=== PATIENT | male | born 1950 | race Hispanic/Latino ===

== ENCOUNTER 2018-10-06 03:27 | Emergency (ER) | payer MEDICARE, OTHER ==
[~2018-10-06] VITALS: Ht 165.1 cm; Wt 77.1 kg
--- OUTSIDE RECORDS SUMMARY | 2018-10-06 03:30 | XMS REPORT | Continuity of Care Document ---
Author Author [facility] Interface Address Unknown Phone Unavailable Problems Problem Status Onset Date Classification Date Reported Comments Source Diabetes mellitus Resolved Problem 09/22/2018 Medical Group Erectile dysfunction due to arterial insufficiency Active Problem 09/22/2018 Medical Group Medications Medication Details Route Status Patient Instructions Ordering Provider Order Date Source Allergies, Adverse Reactions, Alerts Substance Category Reaction Severity Reaction type Status Date Reported Comments Source Immunizations Immunization Date Given Site Status Last Updated Comments Source Results Order Name Results Value Reference Range Date Interpretation Comments Source Vital Signs Vital Sign Value Date Comments Source Encounters Location Location Details Encounter Type Encounter Number Reason For Visit Attending Provider ADM Date DC Date Status Source Outpatient [id number] KARTHIK PARKER 07/26/2018 Active [facility] Outpatient [id number] NURSE VISIT 08/02/2018 Active [facility] Outpatient [id number] NURSE VISIT 09/19/2018 Active [facility] Outpatient [id number] Karthik Parker 09/19/2018 09/20/2018 [facility] Procedures Procedure Code Date Perfomer Comments Source
--- OUTSIDE RECORDS SUMMARY | 2018-10-06 03:30 | XMS REPORT | Summary of Care ---
Author Author [facility] Organization [facility] Address Unknown Phone Unavailable Encounter HQ Ivanr_elkin(FIN) [id number] Date(s): 09/19/18 - 09/19/18 [facility] [address] [place], [place] [address] Discharge Disposition: Home or Self Care Attending Physician: Karthik Parker MD Vital Signs No data available for this section Problem List Condition Effective Dates Status Health Status Informant Diabetes Resolved mellitus(Confirmed) Erectile dysfunction Active due to arterial insufficiency(Confir med) Allergies, Adverse Reactions, Alerts Substance Reaction Severity Status NKDA Active Medications No data available for this section Results No data available for this section Immunizations No data available for this section Procedures No data available for this section Social History Social History Type Response Substance Abuse Use: None. Sexual Sexually active: No. Employment/School Status: Employed. Alcohol Never Smoking Status Current some day smoker; Exposure to Tobacco Smoke self; Cigarette Smoking Last 365 Days Yes; Reg Smoking Cessation Counseling No entered on: 07/26/18 Assessment and Plan No data available for this section
--- OUTSIDE RECORDS SUMMARY | 2018-10-06 03:30 | XMS REPORT ---
[facility] Address Unknown Phone Unavailable Care Team Providers Care Handle Bender Name Role Phone DELFIN KNOWLES Unavailable Unavailable Problems This patient has no known problems. Allergies, Adverse Reactions, Alerts This patient has no known allergies or adverse reactions. Medications This patient has no known medications. Results Test Description Test Time Test Comments Text Results Atomic Results Result Comments HIP LEFT 2-3 VW (+/- PELVIS) [place] [address] Patient Name: FRANK AMES MR #: [id number] : 1950 Age/Sex: 66/M Req #: [id number] Adm Physician: Ordered by: DELFIN KNOWLES MD Report #: [id number] Location: [facility] Room/Bed: Procedure: [id number] DX/HIP LEFT 2-3 VW (+/- PELVIS) Exam Date: Exam Time: REPORT STATUS: Signed PROCEDURE: HIP LEFT 2-3 VW (+/- PELVIS) COMPARISON: None available. INDICATIONS: POLYARTHRITIS FINDINGS: Normal mineralization. No acute fracture or dislocation. Joint spaces are within normal limits. The soft tissues are unremarkable. CONCLUSION: No acute radiographic abnormality. Dictated by: Maribel Neal M.D. on 04/15/2017 at 13:16 Electronically approved by: Maribel Neal M.D. on 04/15/2017 at 13:16 Dictated By: MARIBEL NEAL MD 15 Transcribed By: WANDA on 04/15/171315 COPY TO: DELFIN KNOWLES MD SP LUMBAR, COMPLETE MIN 4VW [place] [address] Patient Name: FRANK AMES MR #: [id number] : 1950 Age/Sex: 66/M Req #: [id number] Adm Physician: Ordered by: DELFIN KNOWLES MD Report #: [id number] Location: [facility] Room/Bed: Procedure: [id number] DX/SP LUMBAR, COMPLETE MIN 4VW Exam Date: 04/15/17 Exam Time: 1215 REPORT STATUS: Signed PROCEDURE: L-SPINE COMPLETE COMPARISON: None. INDICATIONS: POLYARTHRITIS FINDINGS: There are 5 lumbar-type vertebral bodies. Degenerative changes are evidenced by anterior osteophytosis. Grade 2 anterolisthesis of L5 on S1 is present. Otherwise, the vertebral bodies are well-aligned. There are no fractures, lytic or blastic lesions. The disc-space heights are well-maintained. The sacroiliac joints are unremarkable. Cholelithiasis. CONCLUSION: No acute radiographic abnormality. Degenerative changes. Dictated by: Maribel Neal M.D. on 04/15/2017 at 13:19 Electronically approved by: Maribel Neal M.D. on 04/15/2017 at 13:19 Dictated By: MARIBEL NEAL MD 18 Transcribed By: WANDA on 04/15/171318 COPY TO: DELFIN KNOWLES MD
[2018-10-06] MEDS ORDERED: LIDOCAINE 5% PATCH TP ONE (03:45)
[2018-10-06 04:00] LABS: BASOPHILS # (AUTO) 0.1 (0.0-0.1); BASOPHILS % 0.5 % (0.0-1.0); EOSINOPHILS # (AUTO) 0.4 (0.0-0.4); EOSINOPHILS % 4.4 % (0.0-6.0); HEMATOCRIT 37.7 % (38.2-49.6); LYMPHOCYTES # (AUTO) 1.4 (1.0-3.2); LYMPHOCYTES % 14.7 % (18.0-39.1); MEAN CORPUSCULAR HEMOGLOBIN 31.5 pg (28-32); MEAN CORPUSCULAR HGB CONC 34.5 g/dL (31-35); MEAN CORPUSCULAR VOLUME 91.3 fL (81-99); MONOCYTES # (AUTO) 0.9 (0.2-0.8); MONOCYTES % 9.3 % (4.4-11.3); NEUTROPHILS % 70.8 % (38.7-80.0); PLATELET COUNT 220 x10e3/uL (140-360); RED BLOOD COUNT 4.13 x10e6/uL (4.3-5.7); RED CELL DISTRIBUTION WIDTH 13.3 % (11.7-14.4)
[2018-10-06 04:20] LABS: ALANINE AMINOTRANSFERASE 26 IU/L (0-55); ALBUMIN 3.6 g/dL (3.5-5.0); ALKALINE PHOSPHATASE 112 IU/L (40-150); ANION GAP 11.1 mmol/L (8-16); BLOOD UREA NITROGEN 18 mg/dL (7-26); BUN/CREATININE RATIO 21 (6-25); CALCIUM 9.9 mg/dL (8.4-10.2); CARBON DIOXIDE 27 mmol/L (22-29); CHLORIDE 102 mmol/L (98-107); CREATININE, SERUM 0.87 mg/dL (0.72-1.25); EST GLOMERULAR FILTRATION RATE > 60 ML/MIN (60-); GLUCOSE 143 mg/dL (74-118); POTASSIUM 4.1 mmol/L (3.5-5.1); SODIUM 136 mmol/L (136-145)
[2018-10-06 04:29] LABS: BILIRUBIN,URINE NEGATIVE (NEGATIVE); CLARITY,URINE CLEAR (CLEAR); COLOR,URINE YELLOW (YELLOW); KETONES,URINE NEGATIVE (NEGATIVE); LEUKOCYTE ESTERASE ,URINE NEGATIVE (NEGATIVE); NITRITE,URINE NEGATIVE (NEGATIVE); PROTEIN,URINE DIPSTICK NEGATIVE (NEGATIVE); URINE UROBILINOGEN 4 mg/dL (0.2 - 1)
[2018-10-06 04:30] LABS: BACTERIA,URINE FEW /HPF; EPITHELIAL CELLS,URINE FEW /LPF; WBC,URINE (MAN) 0-5 /HPF (0-5)
[2018-10-06] MEDS ORDERED: SODIUM CHLORIDE 0.9% 50ML 50 ML ONE (04:35)
[2018-10-06] MEDS ORDERED: IOPAMIDOL 370 MG/ML 200 ML INFUS..BTL INJ ONE (04:36)
--- NOTE | 2018-10-06 05:30 | Diagnostic Imaging Report ---
EXAM: CT Abdomen and Pelvis WITH contrast INDICATION: TRAUMA COMPARISON: None. TECHNIQUE: Abdomen and pelvis were scanned utilizing a multidetector helical scanner from the lung base to the pubic symphysis after administration of IV contrast. Coronal and sagittal reformations were obtained. Routine protocol was performed. Scan was performed when during portal venous phase. IV CONTRAST: 100 mL of Isovue-370 ORAL CONTRAST: Water COMPLICATIONS: None RADIATION DOSE: Total DLP: 315.74 mGy*cm Estimated effective dose: (DLP x 0.015 x size factor) mSv Dose modulation, iterative reconstruction, and/or weight based adjustment of the mA/kV was utilized to reduce the radiation dose to as low as reasonably achievable. FINDINGS: LINES and TUBES: None. LOWER THORAX: Scattered subsegmental atelectasis. No pneumothorax within the visualized portions. HEPATOBILIARY: No focal hepatic lesions. No biliary ductal dilation. GALLBLADDER: There are stones in the gallbladder. No wall thickening. SPLEEN: No splenomegaly. PANCREAS: No focal masses or ductal dilatation. ADRENALS: No adrenal nodules KIDNEYS/URETERS: Kidneys enhance symmetrically. No hydronephrosis. No cystic or solid mass lesions. No stones. GI TRACT: No abnormal distention, wall thickening, or evidence of bowel obstruction. Large amount of stool in the colon. There are diverticula within the colon without evidence of diverticulitis. Appendix is normal. PELVIC ORGANS/BLADDER: Unremarkable. LYMPH NODES: No lymphadenopathy. VESSELS: Unremarkable. PERITONEUM / RETROPERITONEUM: No free air or fluid. BONES: Grade 1 anterolisthesis of L5 on S1 posterior fusion and decompression. Acute mildly displaced fractures within the visualized portions left ribs 8-11, specifically 8 anterolaterally, 9 and 10 laterally, an 11 posteriorly. SOFT TISSUES: Soft tissue swelling adjacent to the left rib fractures. IMPRESSION: Acute mildly displaced fractures of left ribs 8-11. No acute intra-abdominal abnormalities. Signed by: DR. Danny Rangel MD on 10/06/2018 5:26 AM
--- NOTE | 2018-10-06 05:34 | Diagnostic Imaging Report ---
EXAMINATION: RIBS UNILAT W/CXR INDICATION: fall with ecchymosis over ribs 10-12 COMPARISON: None FINDINGS: AP view TUBES and LINES: None. LUNGS: Lungs are well inflated. Lungs are clear. There is no evidence of pneumonia or pulmonary edema. PLEURA: No pleural effusion or pneumothorax. HEART AND MEDIASTINUM: The cardiomediastinal silhouette is unremarkable. BONES AND SOFT TISSUES: Mildly displaced left ninth rib fracture. Left 8th, 10th, and 11th rib fractures seen on same day abdominal CT are not well visualized radiographically. Ligamentous anchors project over the left humeral head. Soft tissues are unremarkable. UPPER ABDOMEN: No free air under the diaphragm. IMPRESSION: Acute rib fractures of left ribs 8-11, better seen on CT abdomen and pelvis 10/06/2018. No pneumothorax. Signed by: DR. Danny Rangel MD on 10/06/2018 5:30 AM
--- NOTE | 2018-10-06 07:51 | NUR ---
TRANSFER INITIATED TO [facility], SPOKE WITH PARRIS ROTARY FURNACE TENDER
[2018-10-06] MEDS ORDERED: SODIUM CHLORIDE 0.9% 1000ML 1,000 ML IV STA (07:54)
[2018-10-06] MEDS ORDERED: ONDANSETRON HCL INJ 2MG/ML 2ML 2 MG/ML VIAL IV STA (07:54)
[2018-10-06] MEDS ORDERED: MORPHINE SULFATE INJ 4 MG/ML INJ 1ML IV ONE (08:00)
[2018-10-06] MEDS ORDERED: MORPHINE SULFATE 5 MG/ML VIAL IV ONE (08:00)
--- NOTE | 2018-10-06 09:41 | NUR ---
report to [facility] ER; [phone]; Report to Ann RN
--- NOTE | 2018-10-06 09:57 | Diagnostic Imaging Report ---
EXAM: CT Chest without contrast INDICATION: Status post fall with rib fractures. COMPARISON: None TECHNIQUE: Chest was scanned utilizing a multidetector helical scanner from the lung apex through the level of the adrenal glands without administration of IV contrast. Coronal and sagittal reformations were obtained. Routine protocol was performed. RADIATION DOSE: Total DLP: 469.9 mGy*cm Dose modulation, iterative reconstruction, and/or weight based adjustment of the mA/kV was utilized to reduce the radiation dose to as low as reasonably achievable. COMPLICATIONS: None FINDINGS: LINES/ TUBES: None. LUNGS AND AIRWAYS: The central airways are patent. There is patchy dependent atelectasis. No evidence of consolidation or pulmonary edema. PLEURA: The pleural spaces are clear. HEART AND MEDIASTINUM: The thyroid gland is normal. No mediastinal, hilar or axillary lymphadenopathy. No cardiomegaly or pericardial effusion. There is coronary and aortic atherosclerotic calcifications. UPPER ABDOMEN: Please refer to the same day CT abdomen/pelvis for details. BONES/SOFT TISSUES: The 10th and 11th ribs are excluded from the field of view. Minimally displaced left eighth and 10th rib fractures are noted. IMPRESSION: No evidence of pulmonary contusion as clinically queried. The lower ribs are partially excluded from the field of view. Minimally displaced left eighth and 10th rib fractures. Known left ninth and eleventh rib fractures are not included in the field of view. Please refer to the same day CT abdomen/pelvis report for further details. Signed by: Dr. Claire Malin MD on 10/06/2018 9:57 AM
--- NOTE | 2018-10-06 11:18 | NUR ---
PATIENT PICKED UP BY [facility] @ 1100; VITALS STABLE; FAMILY EN ROUTE TO [facility]
[2018-10-06 11:22] VITALS: BP 136/83
== END 2018-10-06 11:24 | disposition other institution (70) ==
LOC: ER 03:27
DX: S22.42XA Multiple fractures of ribs, left side, initial encounter for closed fracture (principal); S20.212A Contusion of left front wall of thorax, initial encounter; R07.81 Pleurodynia; R10.12 Left upper quadrant pain; W18.30XA Fall on same level, unspecified, initial encounter; Y99.0 Civilian activity done for income or pay
CPT/HCPCS: 36415; 71101; 71250; 74177; 80053; 81001; 85025; 86850; 86900; 99284; J2270; J2405; J7030; Q9967

== ENCOUNTER 2019-03-23 15:05 | Inpatient (IN) | payer OTHER, MEDICARE ==
[~2019-03-23] VITALS: Ht 165.1 cm; Wt 77.7 kg
--- OUTSIDE RECORDS SUMMARY | 2019-03-23 15:08 | XMS REPORT | Summary of Care ---
Author Author [facility] Organization [facility] Address Unknown Phone Unavailable Encounter HARRIS Beltrán(SUJATHA) [id number] Date(s): 10/06/18 - 10/06/18 [facility] [address] [employer] provided by [facility] [place] [address]- Encounter Diagnosis Rib fracture (Discharge Diagnosis) - 10/06/18 Discharge Disposition: Home or Self Care Attending Physician: Nazario Willingham MD Admitting Physician: Du Frias MD Referring Physician: Clifford Frausto MD Vital Signs Most recent to 1 2 oldest [Reference Range]: Temperature Oral 98.6 DegF 98.2 DegF [96.4-99.1 DegF] (10/06/18 3:30 PM) (10/06/18 11:58 AM) Blood Pressure 165/94 mmHg 138/85 mmHg [90-140/60-90 mmHg] *HI* (10/06/18 11:58 AM) (10/06/18 3:30 PM) Respiratory Rate 18 BRMIN 18 BRMIN [14-20 BRMIN] (10/06/18 3:30 PM) (10/06/18 11:58 AM) Peripheral Pulse 88 bpm 85 bpm Rate [60-100 bpm] (10/06/18 3:30 PM) (10/06/18 11:58 AM) Weight 86.364 kg (10/06/18 11:58 AM) Problem List Condition Effective Dates Status Health Status Informant Diabetes Resolved mellitus(Confirmed) Erectile dysfunction Active due to arterial insufficiency(Confir med) Allergies, Adverse Reactions, Alerts Substance Reaction Severity Status NKDA Active Medications acetaminophen-hydrocodone 325 mg-5 mg oral tablet 1 tab, Route: PO, Drug Form: TAB, Dosing Weight 86.364, kg, ONCE, STAT, Start da te: 10/06/18 12:32:00 HYPERION ADMINISTRATOR, Stop date: 10/06/18 12:32:00 HYPERION ADMINISTRATOR Notes: (Same as: Sutton 325/5) Do not exceed 4gm/day of acetaminophen. Start Date: 10/06/18 Stop Date: 10/06/18 Status: Completed ibuprofen 400 mg, 1 tab, Route: PO, Drug form: TAB, ONCE, Dosing Weight 86.364, kg, Priori ty: STAT, Start date: 10/06/18 12:33:00 HYPERION ADMINISTRATOR, Stop date: 10/06/18 12:33:00 HYPERION ADMINISTRATOR Notes: (Same as: Motrin)"Do Not Crush" Give with food. Start Date: 10/06/18 Stop Date: 10/06/18 Status: Completed Sutton 10/325 oral tablet 1 tab, PO, Q6H, # 12 tab, 0 Refill(s), given to patient Start Date: 10/06/18 Stop Date: 10/14/18 Status: Ordered Results No data available for this section [...] Reg Smoking Cessation Counseling No entered on: 10/06/18 Assessment and Plan No data available for this section
--- OUTSIDE RECORDS SUMMARY | 2019-03-23 15:08 | XMS REPORT | Summary of Care ---
Author Author [facility] Organization [facility] Address Unknown Phone Unavailable Encounter HQ Jerel(FIN) [id number] Date(s): 08/02/18 - 08/02/18 [facility] [address] [place] [address]- [phone] Discharge Disposition: Home or Self Care Vital Signs Most recent to 1 oldest [Reference Range]: Temperature Oral 98.0 DegF [96.4-99.1 DegF] (08/02/18 10:14 AM) Blood Pressure 144/91 mmHg [90-140/60-90 mmHg] *HI* (08/02/18 10:14 AM) Peripheral Pulse 86 bpm Rate [60-100 bpm] (08/02/18 10:14 AM) Problem List Condition Effective Dates Status Health Status Informant Diabetes Resolved mellitus(Confirmed) Erectile dysfunction Active due to arterial insufficiency(Confir med) Allergies, Adverse Reactions, Alerts No Known Medication Allergies Medications No data available for this section [...]
--- OUTSIDE RECORDS SUMMARY | 2019-03-23 15:08 | XMS REPORT | Continuity of Care Document ---
Author Author [employer] Organization [employer] Address Unknown Phone Unavailable Care Team Providers Care Cam Maker Name Role Phone Collect[employer] Unavailable Unavailable Problems Problem Status Onset Date Classification Date Reported Comments Source Fracture of one rib, unspecified side, initial encounter for closed fracture 10/06/2018 10/08/2018 [facility] MULTIPLE RIB FX Active 10/03/2018 [facility] Diabetes mellitus (disorder) Resolved Problem 02/20/2019 [facility] Erectile dysfunction co-occurrent and due to arterial insufficiency (disorder) Active Problem 02/20/2019 [facility] Medications Medication Details Route Status Patient Instructions Ordering Provider Order Date Source Acetaminophen 325 MG / Hydrocodone Bitartrate 10 MG Oral Tablet [[place] 10/325] 1 tab, PO, Q6H, # 12 tab, 0 Refill(s), given to patient Active 10/06/2018 [facility] Ibuprofen 400 mg, 1 tab, Route: PO, Drug form: TAB, ONCE, Dosing Weight 86.364, kg, Priority: STAT, Start date: 10/06/18 12:33:00 [employer], Stop date: 10/06/18 12:33:00 CSTNotes: (Same as: Motrin) "Do Not Crush" Give with food. Inactive 10/06/2018 [facility] Acetaminophen 325 MG / Hydrocodone Bitartrate 5 MG Oral Tablet 1 tab, Route: PO, Drug Form: TAB, Dosing Weight 86.364, kg, ONCE, STAT, Start date: 10/06/18 12:32:00 [employer], Stop date: 10/06/18 12:32:00 CSTNotes: (Same as: [place] 325/5) Do not exceed 4gm/day of acetaminophen. Inactive 10/06/2018 [facility] Super Tri-Mix Super Tri-Mix, Strength: 30mg/2mg/20mcg/mL 5mL 11 refills, Refill(s) 0 Active 07/26/2018 [facility] tizanidine 4 mg oral tablet 8 mg=2 tab, PO, Q8H, 0 Refill(s) Active 07/26/2018 [facility] gabapentin 300 MG Oral Capsule 300 mg=1 cap, PO, TID, 0 Refill(s) Active 07/26/2018 [facility] Acetaminophen 325 MG / Hydrocodone Bitartrate 10 MG Oral Tablet [[place] 10/325] 1 tab, PO, Q6H, 0 Refill(s) Active 07/26/2018 [facility] Allergies, Adverse Reactions, Alerts Substance Category Reaction Severity Reaction type Status Date Reported Comments Source No Known Medication Allergies Assertion Drug allergy [facility] Immunizations No Data Provided for This Section Results Order Name Results Value Reference Range Date Interpretation Comments Source Urine color determination YELLOW YELLOW 10/06/2018 [facility] Urine clarity CLEAR CLEAR 10/06/2018 [facility] Specific gravity of Urine by Test strip 1.025 1.010 - 1.025 10/06/2018 [facility] Urine pH measurement by automated test strip 6 5 - 7 10/06/2018 [facility] Urine leukocyte esterase detection by dipstick NEGATIVE NEGATIVE 10/06/2018 [facility] Urine nitrite detection NEGATIVE NEGATIVE 10/06/2018 [facility] Urine protein measurement by test strip (mass/volume) NEGATIVE NEGATIVE 10/06/2018 [facility] Urine glucose detection 1+ NEGATIVE 10/06/2018 [facility] Urine ketones detection by automated test strip NEGATIVE NEGATIVE 10/06/2018 [facility] Urine urobilinogen measurement by test strip (mass/volume) 4 0.2 - 1 10/06/2018 [facility] Urine total bilirubin measurement (mass/volume) NEGATIVE NEGATIVE 10/06/2018 [facility] Urine erythrocytes detection NEGATIVE NEGATIVE 10/06/2018 [facility] Automated urine sediment leukocyte count by microscopy (number/high power field) 0-5 0 - 5 10/06/2018 [facility] Erythrocytes detection in urine sediment by light microscopy 6-10 0 - 5 10/06/2018 [facility] Bacteria detection in urine sediment by light microscopy FEW NONE 10/06/2018 [facility] Epithelial cells detection in urine sediment by light microscopy FEW NONE 10/06/2018 [facility] Blood leukocytes automated count (number/volume) 9.81 4.8 - 10.8 10/06/2018 [facility] Blood erythrocytes automated count (number/volume) 4.13 4.3 - 5.7 10/06/2018 [facility] Blood hemoglobin measurement (moles/volume) 13.0 14.0 - 18.0 10/06/2018 [facility] Automated blood hematocrit (volume fraction) 37.7 38.2 - 49.6 10/06/2018 [facility] Automated erythrocyte mean corpuscular volume 91.3 81 - 99 10/06/2018 [facility] Automated erythrocyte mean corpuscular hemoglobin (mass per erythrocyte) 31.5 28 - 32 10/06/2018 [facility] Automated erythrocyte mean corpuscular hemoglobin concentration measurement (mass/volume) 34.5 31 - 35 10/06/2018 [facility] RDW BldCo-Rto 13.3 11.7 - 14.4 10/06/2018 [facility] Automated blood platelet count (count/volume) 220 140 - 360 10/06/2018 [facility] Automated blood segmented neutrophil count as percentage of total leukocytes 70.8 38.7 - 80.0 10/06/2018 [facility] Automated blood lymphocyte count as percentage ot total leukocytes 14.7 18.0 - 39.1 10/06/2018 [facility] Automated blood monocyte count as percentage of total leukocytes 9.3 4.4 - 11.3 10/06/2018 [facility] Automated blood eosinophil count as percentage of total leukocytes 4.4 0.0 - 6.0 10/06/2018 [facility] Automated blood basophil count as percentage of total leukocytes 0.5 0.0 - 1.0 10/06/2018 [facility] IM GRANULOCYTES % 0.3 0.0 - 1.0 10/06/2018 [facility] Automated blood neutrophil count 7.0 2.1 - 6.9 10/06/2018 [facility] Blood lymphocytes count (number/volume) 1.4 1.0 - 3.2 10/06/2018 [facility] Blood monocytes automated count (number/volume) 0.9 0.2 - 0.8 10/06/2018 [facility] Automated blood eosinophil count 0.4 0.0 - 0.4 10/06/2018 [facility] Automated blood basophil count (count/volume) 0.1 0.0 - 0.1 10/06/2018 [facility] Absolute Immature Granulocyte (auto 0.03 0 - 0.1 10/06/2018 [facility] Serum or plasma sodium measurement (moles/volume) 136 136 - 145 10/06/2018 [facility] Serum or plasma potassium measurement (moles/volume) 4.1 3.5 - 5.1 10/06/2018 [facility] Serum or plasma chloride measurement (moles/volume) 102 98 - 107 10/06/2018 [facility] Serum or plasma carbon dioxide, total measurement (moles/volume) 27 22 - 29 10/06/2018 [facility] Serum or plasma anion gap 11.1 8 - 16 10/06/2018 [facility] Serum or plasma urea nitrogen measurement (mass/volume) 18 7 - 26 10/06/2018 [facility] Serum or plasma creatinine measurement (mass/volume) 0.87 0.72 - 1.25 10/06/2018 [facility] Serum or plasma urea nitrogen/creatinine mass ratio 21 6 - 25 10/06/2018 [facility] Estimated glomerular filtration rate (GFR) determination > 60 60 10/06/2018 [facility] Glucose measurement 143 74 - 118 10/06/2018 [facility] Serum or plasma calcium measurement (mass/volume) 9.9 8.4 - 10.2 10/06/2018 [facility] Serum or plasma total bilirubin measurement (mass/volume) 1.0 0.2 - 1.2 10/06/2018 [facility] Aspartate Amino Transf (AST/SGOT) 24 5 - 34 10/06/2018 [facility] Serum or plasma alanine aminotransferase measurement (enzymatic activity/volume) 26 0 - 55 10/06/2018 [facility] Serum or plasma protein measurement (mass/volume) 7.3 6.5 - 8.1 10/06/2018 [facility] Serum or plasma albumin measurement (mass/volume) 3.6 3.5 - 5.0 10/06/2018 [facility] Plasma globulin measurement (mass/volume) 3.7 2.3 - 3.5 10/06/2018 [facility] Serum or plasma albumin/globulin mass ratio 1.0 0.8 - 2.0 10/06/2018 [facility] Serum or plasma alkaline phosphatase measurement (enzymatic activity/volume) 112 40 - 150 10/06/2018 [facility] Pathology Reports No Data Provided for This Section Diagnostic Reports Report Value Date Source Torso-Outside Consult CT EXAM: CT CHEST WITHOUT CONTRAST DATE: 10/06/2018 16:36 [employer] INDICATION: - outside study for reinterpretation/pain s/p fall TECHNIQUE: Volumetric CT acquisition of the chest, without intravenous contrast. Axial, sagittal and coronal reconstructions. IV Contrast: None. DLP: mGy-cm COMPARISON: None FINDINGS: Lines and Tubes: None. Lower Neck: The visible portions or the lower neck and thyroid are unremarkable. Heart and Great Vessels: Normal noncontrast appearance. Scattered thoracic aortic calcifications. No mediastinal hematoma. Lymph Nodes: No hilar, mediastinal, axillary or internal mammary lymphadenopathy. Lungs: Mild bilateral dependent atelectasis. No pulmonary contusions. Pleura: No pleural effusion or pneumothorax. Upper abdomen: Unremarkable. Bones and Soft Tissues: In correlation with the same-day CT abdomen pelvis there are minimally displaced left 8th-11th rib fractures. IMPRESSION: Minimally displaced left 8th-11th rib fractures, in correlation with the same- day CT abdomen and pelvis. 10/06/2018 [facility] Torso-Outside Consult CT EXAM: CT ABDOMEN AND PELVIS WITH CONTRAST DATE: 10/06/2018 16:35 [employer] INDICATION: outside study/pain s/p trauma, second interpretation requested. COMPARISON: None TECHNIQUE: Volumetric CT of the chest, abdomen and pelvis is acquired following intravenous administration of contrast. Axial, coronal and sagittal images are provided. DLP: 315.74 mGy-cm Contrast: 100 mL (Isovue 370 mg/mL) UT SECTION: ER FINDINGS: Lines and tubes: None. Lower thorax: Left dependent atelectasis. No pleural effusions or basilar pneumothorax.. Liver and biliary tree: No injury. No biliary abnormality. Gallbladder: No injury. 2. Calculated in the region of the gallbladder neck largest measuring up to 1.1 cm in diameter. No gallbladder wall thickening or pericholecystic fluid. Pancreas: Normal. No injury. Spleen: Normal. No injury. Adrenals: Normal. No injury. Kidneys and ureters: Normal. No injury. Bladder: Mild bladder wall thickening in the region of the dome. Reproductive organs: No injury. Gastrointestinal tract: Large colonic stool burden. No bowel injury. Normal appendix. Peritoneum and retroperitoneum: No fluid collections or free air. Lymph nodes: Normal. Vasculature: No vascular injury. Aortoiliac atherosclerotic calcifications. Spine/ Bones: Posterior spinal fixation hardware is noted at L5, S1 level. Grade 2 anterolisthesis of L5 over S1. L5-S1 degenerative disc disease is noted. Mildly displaced left 8th rib fractures. Soft tissues: Normal. IMPRESSION: 1. Displaced left 8-11th rib fractures. 2. Intact posterior spinal fixation hardware at L5-S1. Grade 2 anterolisthesis of L5 over S1 with L5-S1 degenerative disc disease.. 3. Mild thickening of the urinary bladder at the bladder dome. Recommend correlation with urinalysis. 10/06/2018 [facility] Consultation Notes No Data Provided for This Section Discharge Summaries No Data Provided for This Section History and Physicals No Data Provided for This Section Vital Signs Vital Sign Value Date Comments Source Systolic (mm Hg) 165 10/06/2018 [facility] Diastolic (mm Hg) 94 10/06/2018 [facility] Heart Rate 88 10/06/2018 [facility] Temperature Oral (F) 98.6 F 10/06/2018 [facility] Respitory Rate 18 10/06/2018 [facility] Temperature Oral (F) 98.2 F 10/06/2018 [facility] Respitory Rate 18 10/06/2018 [facility] Heart Rate 85 10/06/2018 [facility] Systolic (mm Hg) 138 10/06/2018 [facility] Diastolic (mm Hg) 85 10/06/2018 [facility] Weight 86.364 10/06/2018 [facility] Heart Rate 86 08/02/2018 [facility] Temperature Oral (F) 98.0 F 08/02/2018 [facility] Systolic (mm Hg) 144 08/02/2018 [facility] Diastolic (mm Hg) 91 08/02/2018 [facility] Weight 72.727 07/26/2018 [facility] BMI Calculated 26.68 07/26/2018 [facility] Height 165.1 cm 07/26/2018 [facility] Heart Rate 99 07/26/2018 [facility] Systolic (mm Hg) 103 07/26/2018 [facility] Diastolic (mm Hg) 69 07/26/2018 [facility] Encounters Location Location Details Encounter Type Encounter Number Reason For Visit Attending Provider ADM Date DC Date Status Source Outpatient [id number] KARTHIK PARKER 07/26/2018 [facility] Urology [facility] Outpatient [id number] Karthik Parker 07/26/2018 07/27/2018 [facility] Outpatient [id number] NURSE VISIT 08/02/2018 [id number] 08/02/2018 08/03/2018 [facility] Outpatient [id number] NURSE VISIT 09/19/2018 [facility] [id number] Karthik Parker 09/19/2018 09/20/2018 [facility] Departed Emergency Room [id number] CLIFFORD ANDERSON MD 10/06/2018 10/06/2018 [facility] Emergency [id number] Clifford Anderson 10/06/2018 10/06/2018 [facility] Procedures Procedure Code Date Perfomer Comments Source Computed tomography of abdomen and pelvis with contrast [id number] 10/06/2018 NO [facility] Computed tomography of chest without contrast [id number] 10/06/2018 [facility] Assessment and Plan No Data Provided for This Section Plan of Care Plan of Care Date Source Discharge Date 10/06/18 11:24am Disposition TRANS TO OTHER [facility] Condition at Discharge Stable Forms Provided Work/School Excuse Prescriptions See Medication Section 10/06/2018 [facility] Social History Social History Date Source Smoking Status Start Date Stop Date Current every day smoker 10/06/2018 [facility] Social History TypeResponse Substance Abuse Use: None. Sexual Sexually active: No. Employment/School Status: Employed. Alcohol Never Smoking Status Current some day smoker; Exposure to Tobacco Smoke self; Cigarette Smoking Last 365 Days Yes; Reg Smoking Cessation Counseling No entered on: 10/06/18 07/26/2018 [facility] Social History TypeResponse Substance Abuse Use: None. Sexual Sexually active: No. Employment/School Status: Employed. Alcohol Never Smoking Status Current some day smoker; Exposure to Tobacco Smoke self; Cigarette Smoking Last 365 Days Yes; Reg Smoking Cessation Counseling No entered on: 10/06/18 07/26/2018 [facility] Family History No Data Provided for This Section Advance Directives Order Name Results Value Date Source Advance Directives Advance Directives Directive Response Recorded Date/Time Does the patient have an advance directive? No 06/12/12 1:31pm Do you have a Directive to Physician? No 10/06/18 4:11am Do you have a Medical Power of Executive Compensation Analyst? No 10/06/18 4:11am Do you have an out of hospital Do Not Resuscitate Order? No 10/06/18 4:11am Do you have any special needs we should be aware of? No 10/06/18 4:11am Do you have a support person here with you today? Yes 10/06/18 4:11am Did patient receive Notice of Privacy Practices? Yes 10/06/18 4:10am Did patient receive patient rights and responsibilities? Yes 10/06/18 4:10am 10/06/2018 [facility] Functional Status No Data Provided for This Section
--- OUTSIDE RECORDS SUMMARY | 2019-03-23 15:08 | XMS REPORT | Summary of Care ---
Author Author [facility] Organization [facility] Address Unknown Phone Unavailable Encounter HARRIS Beltrán(FIN) [id number] Date(s): 07/26/18 - 07/26/18 [facility] [address] [place] [address]- [phone] Discharge Disposition: Home or Self Care Attending Physician: Karthik Parker MD Vital Signs Most recent to 1 oldest [Reference Range]: Height 165.1 cm (07/26/18 2:23 PM) Blood Pressure 103/69 mmHg [90-140/60-90 mmHg] (07/26/18 2:23 PM) Peripheral Pulse 99 bpm Rate [60-100 bpm] (07/26/18 2:23 PM) Weight 72.727 kg (07/26/18 2:23 PM) Body Mass Index 26.68 m2 (07/26/18 2:23 PM) Problem List Condition Effective Dates Status Health Status Informant Diabetes Resolved mellitus(Confirmed) Erectile dysfunction Active due to arterial insufficiency(Confir med) Allergies, Adverse Reactions, Alerts No Known Medication Allergies Medications gabapentin 300 mg oral capsule 300 mg=1 cap, PO, TID, 0 Refill(s) Start Date: 07/26/18 Status: Ordered [place] 10/325 oral tablet 1 tab, PO, Q6H, 0 Refill(s) Start Date: 07/26/18 Status: Ordered Super Tri-Mix Super Tri-Mix, Strength: 30mg/2mg/20mcg/mL 5mL 11 refills, Refill(s) 0 Start Date: 07/26/18 Status: Ordered tizanidine 4 mg oral tablet 8 mg=2 tab, PO, Q8H, 0 Refill(s) Start Date: 07/26/18 Status: Ordered Results No data available for [...]
--- NOTE | 2019-03-23 15:56 | Diagnostic Imaging Report ---
History: Left arm weakness, rule out stroke Comparison studies: None Technique: Axial images were obtained from the skull base to the vertex. Coronal and sagittal reconstructions obtained from the axial data. Dose modulation, iterative reconstruction, and/or weight based adjustment of the mA/kV was utilized to reduce the radiation dose to as low as reasonably achievable. Findings: Scalp/skull: No abnormalities. No fractures, blastic or lytic lesions. Extra-axial spaces: No masses. No fluid collections. Brain sulci: Appropriate for age. Ventricles: Normal in size and configuration. No hydrocephalus. Parenchyma: Few small hypodensities of the periventricular and deep white matter, most commonly seen with chronic microvascular ischemic changes. No masses, hemorrhage, acute or chronic cortical vascular insults. Sellar/suprasellar region: No abnormalities Craniocervical junction: Patent foramen magnum. No Chiari one malformation. Atherosclerotic calcifications of the carotid siphons and vertebral arteries. IMPRESSION: No acute abnormalities . Signed by: DR Hilario Burger M.D. on 03/23/2019 3:53 PM
--- NOTE | 2019-03-23 16:11 | Diagnostic Imaging Report ---
Chest x-ray, 2 views Clinical indication: Altered mental status Comparison: CT of the chest dated 10/06/2018 Findings: The heart is within normal limits in size. The mediastinal and hilar contours are unremarkable. No focal consolidation, sizable pleural effusion, or pneumothorax. There are no acute osseous abnormalities. Impression: No radiographic evidence of acute cardiopulmonary process. Signed by: Earl Pritchard MD on 03/23/2019 4:08 PM
[2019-03-23] MEDS ORDERED: SODIUM CHLORIDE 0.9% 1000ML 2,000 ML ONE (16:23)
[2019-03-23] MEDS ORDERED: NOREPINEPHRINE 8 MG/D5W 250 ML 250 ML ONE (16:46)
[2019-03-23 16:47] LABS: BASOPHILS % 0.3 % (0.0-1.0); EOSINOPHILS # (AUTO) 0.4 (0.0-0.4); EOSINOPHILS % 3.7 % (0.0-6.0); HEMATOCRIT 35.6 % (38.2-49.6); HEMOGLOBIN 11.7 g/dL (14.0-18.0); LYMPHOCYTES # (AUTO) 1.5 (1.0-3.2); LYMPHOCYTES % 12.4 % (18.0-39.1); MEAN CORPUSCULAR HEMOGLOBIN 31.8 pg (28-32); MEAN CORPUSCULAR HGB CONC 32.9 g/dL (31-35); MEAN CORPUSCULAR VOLUME 96.7 fL (81-99); MONOCYTES # (AUTO) 0.8 (0.2-0.8); MONOCYTES % 6.4 % (4.4-11.3); NEUTROPHILS % 76.8 % (38.7-80.0); PLATELET COUNT 190 x10e3/uL (140-360); RED BLOOD COUNT 3.68 x10e6/uL (4.3-5.7); RED CELL DISTRIBUTION WIDTH 13.7 % (11.7-14.4)
[2019-03-23] MEDS ORDERED: HEPARIN SOD (PORCINE) 5,000 UNIT/ML VIAL ONE (16:50)
[2019-03-23 16:57] LABS: INR 0.9; PROTHROMBIN TIME 12.6 seconds (11.9-14.5)
[2019-03-23 16:58] LABS: PARTIAL THROMBOPLASTIN TIME 25.2 seconds (23.8-35.5)
[2019-03-23 17:05] LABS: ALBUMIN 3.7 g/dL (3.5-5.0); ALBUMIN/GLOBULIN RATIO 1.1 (0.8-2.0); ANION GAP 21.8 mmol/L (8-16); CALCIUM 9.2 mg/dL (8.4-10.2); CREATININE, SERUM 5.04 mg/dL (0.72-1.25)
[2019-03-23 17:11] LABS: CREATINE KINASE MB 5.2 ng/mL (0-5.0)
[2019-03-23 17:19] LABS: POTASSIUM 5.8 mmol/L (3.5-5.1)
[2019-03-23 17:26] LABS: CHOL/HDL RATIO 4.3 (3.9-4.7)
--- NOTE | 2019-03-23 17:30 | Diagnostic Imaging Report ---
Chest radiograph, 1 view Clinical indication: Verify central line placement Comparison: Earlier the same day at 1546 Impression: The tip of the right neck central line terminates in the region of the proximal SVC there is no pneumothorax. No other significant interval changes. Signed by: Earl Pritchard MD on 03/23/2019 5:26 PM
[2019-03-23] MEDS: ASPIRIN 81 MG ENTERIC COATED PO SCH (18:09)
--- OUTSIDE RECORDS SUMMARY | 2019-03-23 18:45 | XMS REPORT | Continuity of Care Document ---
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 Name Role Phone Octane Lending Information [employer] Unavailable Unavailable Problems Problem Status Onset Date Classification Date Reported Comments Source Fracture of one rib, unspecified side, initial encounter for closed fracture 10/06/2018 10/08/2018 [facility] MULTIPLE RIB FX Active 10/03/2018 [facility] Diabetes mellitus (disorder) Resolved Problem 02/20/2019 [facility] Erectile dysfunction co-occurrent and due to arterial insufficiency (disorder) Active Problem 02/20/2019 [facility] Medications Medication Details Route Status Patient Instructions Ordering Provider Order Date Source Acetaminophen 325 MG / Hydrocodone Bitartrate 10 MG Oral Tablet [[place] 10/325] 1 tab, PO, Q6H, # 12 tab, 0 Refill(s), given to patient Active 10/06/2018 [facility] Ibuprofen 400 mg, 1 tab, Route: PO, Drug form: TAB, ONCE, Dosing Weight 86.364, kg, Priority: STAT, Start date: 10/06/18 12:33:00 RD PROJECT MANAGER, Stop date: 10/06/18 12:33:00 CSTNotes: (Same as: Motrin) "Do Not Crush" Give with food. Inactive 10/06/2018 [facility] Acetaminophen 325 MG / Hydrocodone Bitartrate 5 MG Oral Tablet 1 tab, Route: PO, Drug Form: TAB, Dosing Weight 86.364, kg, ONCE, STAT, Start date: 10/06/18 12:32:00 RD PROJECT MANAGER, Stop date: 10/06/18 12:32:00 CSTNotes: (Same as: [place] 325/5) Do not exceed 4gm/day of acetaminophen. Inactive 10/06/2018 [facility] Super Tri-Mix Super Tri-Mix, Strength: 30mg/2mg/20mcg/mL 5mL 11 refills, Refill(s) 0 Active 07/26/2018 [facility] tizanidine 4 mg oral tablet 8 mg=2 tab, PO, Q8H, 0 Refill(s) Active 07/26/2018 [facility] gabapentin 300 MG Oral Capsule 300 mg=1 cap, PO, TID, 0 Refill(s) Active 07/26/2018 [facility] Acetaminophen 325 MG / Hydrocodone Bitartrate 10 MG Oral Tablet [[place] 10/325] 1 tab, PO, Q6H, 0 Refill(s) Active 07/26/2018 [facility] Allergies, Adverse Reactions, Alerts Substance Category Reaction Severity Reaction type Status Date Reported Comments Source No Known Medication Allergies Assertion Drug allergy [facility] Immunizations No Data Provided for This Section Results Order Name Results Value Reference Range Date Interpretation Comments Source Urine color determination YELLOW YELLOW 10/06/2018 [facility] Urine clarity CLEAR CLEAR 10/06/2018 [facility] Specific gravity of Urine by Test strip 1.025 1.010 - 1.025 10/06/2018 [facility] Urine pH measurement by automated test strip 6 5 - 7 10/06/2018 [facility] Urine leukocyte esterase detection by dipstick NEGATIVE NEGATIVE 10/06/2018 [facility] Urine nitrite detection NEGATIVE NEGATIVE 10/06/2018 [facility] Urine protein measurement by test strip (mass/volume) NEGATIVE NEGATIVE 10/06/2018 [facility] Urine glucose detection 1+ NEGATIVE 10/06/2018 [facility] Urine ketones detection by automated test strip NEGATIVE NEGATIVE 10/06/2018 [facility] Urine urobilinogen measurement by test strip (mass/volume) 4 0.2 - 1 10/06/2018 [facility] Urine total bilirubin measurement (mass/volume) NEGATIVE NEGATIVE 10/06/2018 [facility] Urine erythrocytes detection NEGATIVE NEGATIVE 10/06/2018 [facility] Automated urine sediment leukocyte count by microscopy (number/high power field) 0-5 0 - 5 10/06/2018 [facility] Erythrocytes detection in urine sediment by light microscopy 6-10 0 - 5 10/06/2018 [facility] Bacteria detection in urine sediment by light microscopy FEW NONE 10/06/2018 [facility] Epithelial cells detection in urine sediment by light microscopy FEW NONE 10/06/2018 [facility] Blood leukocytes automated count (number/volume) 9.81 4.8 - 10.8 10/06/2018 [facility] Blood erythrocytes automated count (number/volume) 4.13 4.3 - 5.7 10/06/2018 [facility] Blood hemoglobin measurement (moles/volume) 13.0 14.0 - 18.0 10/06/2018 [facility] Automated blood hematocrit (volume fraction) 37.7 38.2 - 49.6 10/06/2018 [facility] Automated erythrocyte mean corpuscular volume 91.3 81 - 99 10/06/2018 [facility] Automated erythrocyte mean corpuscular hemoglobin (mass per erythrocyte) 31.5 28 - 32 10/06/2018 [facility] Automated erythrocyte mean corpuscular hemoglobin concentration measurement (mass/volume) 34.5 31 - 35 10/06/2018 [facility] RDW BldCo-Rto 13.3 11.7 - 14.4 10/06/2018 [facility] Automated blood platelet count (count/volume) 220 140 - 360 10/06/2018 [facility] Automated blood segmented neutrophil count as percentage of total leukocytes 70.8 38.7 - 80.0 10/06/2018 [facility] Automated blood lymphocyte count as percentage ot total leukocytes 14.7 18.0 - 39.1 10/06/2018 [facility] Automated blood monocyte count as percentage of total leukocytes 9.3 4.4 - 11.3 10/06/2018 [facility] Automated blood eosinophil count as percentage of total leukocytes 4.4 0.0 - 6.0 10/06/2018 [facility] Automated blood basophil count as percentage of total leukocytes 0.5 0.0 - 1.0 10/06/2018 [facility] IM GRANULOCYTES % 0.3 0.0 - 1.0 10/06/2018 [facility] Automated blood neutrophil count 7.0 2.1 - 6.9 10/06/2018 [facility] Blood lymphocytes count (number/volume) 1.4 1.0 - 3.2 10/06/2018 [facility] Blood monocytes automated count (number/volume) 0.9 0.2 - 0.8 10/06/2018 [facility] Automated blood eosinophil count 0.4 0.0 - 0.4 10/06/2018 [facility] Automated blood basophil count (count/volume) 0.1 0.0 - 0.1 10/06/2018 [facility] Absolute Immature Granulocyte (auto 0.03 0 - 0.1 10/06/2018 [facility] Serum or plasma sodium measurement (moles/volume) 136 136 - 145 10/06/2018 [facility] Serum or plasma potassium measurement (moles/volume) 4.1 3.5 - 5.1 10/06/2018 [facility] Serum or plasma chloride measurement (moles/volume) 102 98 - 107 10/06/2018 [facility] Serum or plasma carbon dioxide, total measurement (moles/volume) 27 22 - 29 10/06/2018 [facility] Serum or plasma anion gap 11.1 8 - 16 10/06/2018 [facility] Serum or plasma urea nitrogen measurement (mass/volume) 18 7 - 26 10/06/2018 [facility] Serum or plasma creatinine measurement (mass/volume) 0.87 0.72 - 1.25 10/06/2018 [facility] Serum or plasma urea nitrogen/creatinine mass ratio 21 6 - 25 10/06/2018 [facility] Estimated glomerular filtration rate (GFR) determination > 60 60 10/06/2018 [facility] Glucose measurement 143 74 - 118 10/06/2018 [facility] Serum or plasma calcium measurement (mass/volume) 9.9 8.4 - 10.2 10/06/2018 [facility] Serum or plasma total bilirubin measurement (mass/volume) 1.0 0.2 - 1.2 10/06/2018 [facility] Aspartate Amino Transf (AST/SGOT) 24 5 - 34 10/06/2018 [facility] Serum or plasma alanine aminotransferase measurement (enzymatic activity/volume) 26 0 - 55 10/06/2018 [facility] Serum or plasma protein measurement (mass/volume) 7.3 6.5 - 8.1 10/06/2018 [facility] Serum or plasma albumin measurement (mass/volume) 3.6 3.5 - 5.0 10/06/2018 [facility] Plasma globulin measurement (mass/volume) 3.7 2.3 - 3.5 10/06/2018 [facility] Serum or plasma albumin/globulin mass ratio 1.0 0.8 - 2.0 10/06/2018 [facility] Serum or plasma alkaline phosphatase measurement (enzymatic activity/volume) 112 40 - 150 10/06/2018 [facility] Pathology Reports No Data Provided for This Section Diagnostic Reports Report Value Date Source Torso-Outside Consult CT EXAM: CT CHEST WITHOUT CONTRAST DATE: 10/06/2018 16:36 RD PROJECT MANAGER INDICATION: - outside study for reinterpretation/pain s/p [...] same- day CT abdomen and pelvis. 10/06/2018 [facility] Torso-Outside Consult CT EXAM: CT ABDOMEN AND PELVIS WITH CONTRAST DATE: 10/06/2018 16:35 RD PROJECT MANAGER INDICATION: outside study/pain s/p trauma, second interpretation [...] bladder dome. Recommend correlation with urinalysis. 10/06/2018 [facility] Consultation Notes No Data Provided for This Section Discharge Summaries No Data Provided for This Section History and Physicals No Data Provided for This Section Vital Signs Vital Sign Value Date Comments Source Systolic (mm Hg) 165 10/06/2018 [facility] Diastolic (mm Hg) 94 10/06/2018 [facility] Heart Rate 88 10/06/2018 [facility] Temperature Oral (F) 98.6 F 10/06/2018 [facility] Respitory Rate 18 10/06/2018 [facility] Temperature Oral (F) 98.2 F 10/06/2018 [facility] Respitory Rate 18 10/06/2018 [facility] Heart Rate 85 10/06/2018 [facility] Systolic (mm Hg) 138 10/06/2018 [facility] Diastolic (mm Hg) 85 10/06/2018 [facility] Weight 86.364 10/06/2018 [facility] Heart Rate 86 08/02/2018 [facility] Temperature Oral (F) 98.0 F 08/02/2018 [facility] Systolic (mm Hg) 144 08/02/2018 [facility] Diastolic (mm Hg) 91 08/02/2018 [facility] Weight 72.727 07/26/2018 [facility] BMI Calculated 26.68 07/26/2018 [facility] Height 165.1 cm 07/26/2018 [facility] Heart Rate 99 07/26/2018 [facility] Systolic (mm Hg) 103 07/26/2018 [facility] Diastolic (mm Hg) 69 07/26/2018 [facility] Encounters Location Location Details Encounter Type Encounter Number Reason For Visit Attending Provider ADM Date DC Date Status Source Outpatient [id number] KARTHIK PARKER 07/26/2018 [facility] Urology [facility] Outpatient [id number] Karthik Parker 07/26/2018 07/27/2018 [facility] Outpatient [id number] NURSE VISIT 08/02/2018 [facility] [id number] 08/02/2018 08/03/2018 [facility] Outpatient [id number] NURSE VISIT 09/19/2018 [facility] [id number] Karthik Parker 09/19/2018 09/20/2018 [facility] Departed Emergency Room [id number] CLIFFORD ANDERSON MD 10/06/2018 10/06/2018 [facility] Emergency [id number] Clifford Anderson 10/06/2018 10/06/2018 [facility] Procedures Procedure Code Date Perfomer Comments Source Computed tomography of abdomen and pelvis with contrast [id number] 10/06/2018 NO [facility] Computed tomography of chest without contrast [id number] 10/06/2018 [facility] Assessment and Plan No Data Provided for This Section Plan of Care Plan of Care Date Source Discharge Date 10/06/18 11:24am Disposition TRANS TO OTHER [facility] Condition at Discharge Stable Forms Provided Work/School Excuse Prescriptions See Medication Section 10/06/2018 [facility] Social History Social History Date Source Smoking Status Start Date Stop Date Current every day smoker 10/06/2018 [facility] Social History TypeResponse Substance Abuse Use: None. Sexual Sexually active: No. Employment/School Status: Employed. Alcohol Never Smoking Status Current some day smoker; Exposure to Tobacco Smoke self; Cigarette Smoking Last 365 Days Yes; Reg Smoking Cessation Counseling No entered on: 10/06/18 07/26/2018 [facility] Social History TypeResponse Substance Abuse Use: None. Sexual Sexually active: No. Employment/School Status: Employed. Alcohol Never Smoking Status Current some day smoker; Exposure to Tobacco Smoke self; Cigarette Smoking Last 365 Days Yes; Reg Smoking Cessation Counseling No entered on: 10/06/18 07/26/2018 [facility] Family History No Data Provided for This Section Advance Directives Order Name Results Value Date Source Advance Directives Advance Directives Directive Response Recorded Date/Time Does the patient have an advance directive? No 06/12/12 1:31pm Do you have a Directive to Physician? No 10/06/18 4:11am Do you have a Medical Power of Clinical Laboratory Director? No 10/06/18 4:11am Do you have an [...] rights and responsibilities? Yes 10/06/18 4:10am 10/06/2018 [facility] Functional Status No Data Provided for This Section
[2019-03-23] MEDS ORDERED: SODIUM CHLORIDE 0.9% 1000ML 1,000 ML IV STA (19:13)
[2019-03-23] MEDS ORDERED: SODIUM CHLORIDE 0.9% 1000ML 1,000 ML IV SCH (19:15)
[2019-03-23] MEDS ORDERED: SODIUM CHLORIDE 0.9% 1000ML 1,000 ML ONE (19:18)
[2019-03-23] MEDS ORDERED: SOD POLYSTYRENE SULFONATE SUSP 15 GM/60 ML BTL PO ONE (19:30)
[2019-03-23] MEDS ORDERED: INSULIN REGULAR, HUMAN 100 UNIT/1 ML 3ML VIAL IV ONE (19:45)
--- NOTE | 2019-03-23 20:03 | History and Physical ---
CHIEF COMPLAINT: The patient comes in with sudden left-sided weakness. HISTORY OF PRESENTING ILLNESS: This is Mr. Matt Taylor with a history of chronic pain syndrome, history of radiculopathy, history of back surgeries in the past, hyperlipidemia, diabetes mellitus, and hypertension, was in usual state of health until the patient woke up in the morning, suddenly felt some left-sided weakness and apparently had to use right hand to warp picker his left hand. He said that hand seemed useless and the patient called his primary care physician, Dr. Biswas's office and the patient went in, was sent into the emergency room for acute symptoms of TIA versus CVA. PAST MEDICAL HISTORY: As mentioned, hypertension, diabetes mellitus and hyperlipidemia. MEDICATIONS: He takes none. The patient does not remember at this time. The patient remembers [place] 10/325 q.i.d., muscle relaxant and gabapentin 300 mg 3 times a day. ALLERGIES: NO DRUG ALLERGIES NOTED. PAST SURGICAL HISTORY: History of back surgery done at [facility]. The patient had a spinal fusion in the back. SOCIAL HISTORY: History of smoking, history of alcohol, social. No history of IV drug abuse. REVIEW OF SYSTEMS: Positive for some chest pain. Currently, the patient has no nausea, vomiting, or diarrhea. No constipation. No rectal bleeding. No hematochezia. No hematemesis. Left-sided weakness as noted above. No facial weakness or slurring of speech according to the family. PHYSICAL EXAMINATION: VITAL SIGNS: Temperature is afebrile. The patient's pulse is 80, respirations of 12, blood pressure is 77/55 after a carotid Doppler. GENERAL: Otherwise, the patient is alert and oriented x3, talkative. HEENT: Normocephalic, atraumatic. Pupils are reactive to light and accommodation. CVS: S1, S2 normal. Regular rate and rhythm. NECK: Normal. ABDOMEN: Examination of the abdomen is nontender and nondistended. EXTREMITIES: No clubbing, no cyanosis, no edema. NEUROLOGIC: Sleepy a little bit, but able to move all his arms. The patient's strength in all extremities is equal 5/5. The patient has no cranial nerve deficits noted. No focal weakness. Reflexes are normal. No hyperesthesias or paresthesias noted. LABORATORY VALUES: Showing white count is 11.77, hemoglobin 11.7, hematocrit 35.6, no left shift present. Chemistry; sodium of 135, potassium is 5.8, BUN of 71, creatinine is 5.04, hemoglobin of 8.1. ALT and AST normal. The patient's HDL was 30 and LDL was 50. Triglycerides of 240. Coags; PT is 12, INR of 0.90. IMAGING STUDIES: Chest x-ray done initially shows no radiographic evidence of acute cardiopulmonary disorder. Brain CT done, no acute abnormalities. Carotid Doppler was normal. The patient had a central line put in secondary to the hypertensive episode and carotid Doppler was normal. Chest x-ray after that shows tip of neck central line terminates in the proximal SVC. No pneumothorax. ASSESSMENT: 1. Transient ischemic attack. 2. Rule out cerebrovascular accident. 3. diabetes mellitus. 4. Hyperlipidemia. 5. Hypertension. 6. History of chronic pain management. 7. Possible radiculopathy. PLAN: MRI of brain and echocardiogram will be done. A consult with Dr. Dwyer has been done. For the chest pain, Dr. Gooden has been consulted. We will continue to monitor the patient. Echocardiogram and also carotid Doppler have been done. Further recommendation per clinical course. The patient will be kept on aspirin, oxygen, and will monitor the patient here in ICU in view of his hypertensive episode. Further recommendation per clinical course. The patient is on norepinephrine at this time. We will keep the patient n.p.o. MD TRINI Balbuena/MODL /[id number]
[2019-03-23 21:41] VITALS: BP 128/80
[2019-03-23 22:00] VITALS: BP 110/68
[2019-03-23] MEDS: SODIUM BICARBONATE 8.4% 75 ML in SODIUM CHLORIDE 0.45% 1,000 ML IV SCH (22:04)
--- NOTE | 2019-03-23 22:47 | Diagnostic Imaging Report ---
Ventilation/perfusion lung scan Clinical Information: 68 M with hypotension and AMS Comparison: Chest radiograph 03/23/2019 Discussion: Xenon-133 gas 17 mCi was administered via inhalation. Images were attempted but are uninterpretable due to technical factors and patient not being able to fully cooperate. Perfusion images of the lungs were obtained in multiple projections following intravenous administration of approximately 7 mCi of Tc-99m MAA. Distribution of tracer is mildly irregular throughout the lungs. The contours of the lungs are well demarcated. There are no segmental perfusion defects of any size. The cardiomediastinal silhouette is unremarkable. Impression: Perfusion lung scan findings represent a VERY LOW probability for acute pulmonary embolic disease based on the PIOPED II criteria. Ventilation images would not change this probability. Not having ventilation images in this case makes it impossible to determine if obstructive lung disease is present. Signed by: Dr. Lynn Aponte M.D. on 03/23/2019 10:05 PM
[2019-03-23 23:00] VITALS: BP 102/74
[2019-03-24] VITALS (25 sets, daily range): BP systolic 86–167; BP diastolic 65–92
[2019-03-24 06:47] LABS: BASOPHILS # (AUTO) 0.1 (0.0-0.1); BASOPHILS % 0.7 % (0.0-1.0); EOSINOPHILS # (AUTO) 0.6 (0.0-0.4); EOSINOPHILS % 6.4 % (0.0-6.0); HEMATOCRIT 32.2 % (38.2-49.6); HEMOGLOBIN 10.9 g/dL (14.0-18.0); LYMPHOCYTES # (AUTO) 1.7 (1.0-3.2); LYMPHOCYTES % 18.8 % (18.0-39.1); MEAN CORPUSCULAR HEMOGLOBIN 32.2 pg (28-32); MEAN CORPUSCULAR HGB CONC 33.9 g/dL (31-35); MONOCYTES # (AUTO) 0.8 (0.2-0.8); MONOCYTES % 8.8 % (4.4-11.3); NEUTROPHILS # (AUTO) 5.8 (2.1-6.9); PLATELET COUNT 177 x10e3/uL (140-360); RED BLOOD COUNT 3.39 x10e6/uL (4.3-5.7); RED CELL DISTRIBUTION WIDTH 13.5 % (11.7-14.4)
[2019-03-24 07:00] LABS: CALCIUM 8.4 mg/dL (8.4-10.2); POTASSIUM 4.8 mmol/L (3.5-5.1)
[2019-03-24 07:18] LABS: CREATINE KINASE MB 3.3 ng/mL (0-5.0)
[2019-03-24 07:32] LABS: ANION GAP 12.8 mmol/L (8-16)
[2019-03-24 07:37] LABS: CREATININE, SERUM 1.93 mg/dL (0.72-1.25)
--- NOTE | 2019-03-24 08:21 | Consultation ---
DATE OF CONSULTATION: 03/24/2019 Renal Consultation REASON FOR CONSULTATION: Acute kidney injury, hyperkalemia, and acidosis. HISTORY OF PRESENT ILLNESS: A 68-year-old male with a history of diabetes, hypertension, who presented to [facility] with left-sided weakness. 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 He woke up from his recliner and was unable to move his left hand. The weakness was too extent where he had to use his right hand to lift up his left hand. The patient contacted his primary care physician and was sent to the emergency room. The patient was seen in the emergency room, was admitted for possible TIA versus CVA. He was noted to have acute kidney injury, hyperkalemia, acidosis. Nephrology consultation was called. REVIEW OF SYSTEMS: No nausea, no vomiting, no diarrhea. No fevers, no chills. No difficulty urinating. 12-point review of systems completed and all systems negative other than mentioned in the HPI above. PAST MEDICAL HISTORY: 1. Diabetes for approximately 10 years. 2. Hypertension for approximately 7 years. 3. Dyslipidemia. PAST SURGICAL HISTORY: 1. Back surgery. 2. Shoulder surgery. SOCIAL HISTORY: Positive tobacco. No alcohol. No IV drugs. FAMILY HISTORY: No family history of kidney disease. ALLERGIES: NO KNOWN DRUG ALLERGIES. CURRENT MEDICATIONS: See list, was taking Aleve at home. PHYSICAL EXAMINATION: VITAL SIGNS: Blood pressure 120/74, pulse 79, respiratory rate 12, and temperature 98.3. GENERAL: No apparent distress. HEENT: Oropharynx clear. No scleral icterus. No peripheral edema. NECK: Supple. No elevation in jugular venous pressure. No lymphadenopathy. CHEST: Clear to auscultation anteriorly bilaterally. CARDIOVASCULAR: Regular rhythm. No murmurs or rubs. ABDOMEN: Soft, positive bowel sounds. No tenderness. No rebound. EXTREMITIES: No edema. No clubbing. No cyanosis. SKIN: Warm. LABORATORY DATA: Sodium 135, potassium 5.8, chloride 104, CO2 15, BUN 71, creatinine 5, estimated GFR of 11, glucose 324. Hemoglobin A1c 8.1. Repeat potassium 4.8, hemoglobin 10.9, white count 8.86, platelets 177. MRI of the brain is pending. Chest x-ray clear. ASSESSMENT AND PLAN: 1. Acute kidney injury versus chronic kidney disease. The patient is anemic, which supports chronic kidney disease. We will order renal ultrasound, urine studies. Continue with IV fluids. We will need to avoid all nephrotoxic medications. The patient was taking some Aleve at home. Discussed with him to avoid all NSAIDs. 2. Metabolic acidosis, improving with bicarbonate. 3. Anemia due to chronic kidney disease? We will check iron stores. 4. Hyperkalemia, improved with medical therapy. 5. Hypertension, controlled. The patient may benefit from YULY inhibitor at discharge. 6. Transient ischemic attack. Workup ongoing. MD JANNY Quinn/CURT /[id number]
[2019-03-24] MEDS: SODIUM BICARBONATE 8.4% 75 ML in SODIUM CHLORIDE 0.45% 1,000 ML IV SCH ×2 (08:24→20:48)
[2019-03-24] MEDS: ASPIRIN 81 MG ENTERIC COATED PO SCH (08:24)
--- NOTE | 2019-03-24 08:26 | Progress Note ---
DATE: SUBJECTIVE: 68-year-old male comes in with; 1. Acute renal failure. 2. Left-sided weakness. 3. Uncontrolled diabetes mellitus. The patient is currently asymptomatic. His left-sided weakness has resolved. The patient is able to make a fist and also has good sensation on it. No chest pains. No shortness of breath. No nausea, vomiting, or diarrhea, he is asking for his pain medications at this time. OBJECTIVE: VITAL SIGNS: Currently, temperature is 98.3, pulse of 79, respirations of 12, blood pressure is 120/74, and pulse oximetry of 99% on 2 L of nasal cannula. HEENT: Normocephalic and atraumatic. Pupils are reactive to light and accommodation. CVS: S1 and S2 normal. Regular rate and rhythm. ABDOMEN: Nontender and nondistended. EXTREMITIES: No clubbing, no cyanosis, and no edema present. MEDICATIONS: He is on bicarb drip at 100 mL an hour and also on aspirin 81 mg at this time. LABORATORY VALUES: The patient's white count is down to 8.86, hemoglobin of 10.9, hematocrit of 32.9, and no left shift present. The patient's chemistries are pending. Potassium is 4.8, BUN is 54, and creatinine is pending at this time. The patient's last A1c was 8.1. Troponins have trended to be negative. Triglycerides of 250, LDL of 50, and HDL of 30. IMAGING STUDIES: V/Q scan was done and the patient has a very low probability of acute pulmonary embolic disease. Chest x-ray done this morning shows tip of central line in the proximal SVC. There is no pneumothorax. Brain CT from yesterday showed no acute thromboembolic phenomenon and no abnormalities present. ASSESSMENT: 68-year-old gentleman with. 1. Left-sided weakness, possible transient ischemic attack. 2. Diabetes mellitus. Continue on sliding scale. 3. Hyperlipidemia and hypertension. We will get his home medications. We will probably continue. 4. History of chronic pain management. We will continue with [place] 5/325. 5. Acute kidney injury. The patient is on a bicarb drip for acute tubular necrosis. PLAN: MRI of the brain has been ordered, echocardiogram. Dr. Dwyer was consulted and Dr. Gooden was consulted. We would also do a renal ultrasound, 24-hour urine collection, and we will continue to monitor the patient in the ICU for today. Further recommendation per clinical course. We also consulted Dr. Hernandez and/or Dr. Busby and we will continue monitoring his kidney functions. MD TRINI Balbuena/MODL /[id number]
[2019-03-24 09:54] LABS: BILIRUBIN,URINE NEGATIVE (NEGATIVE); CLARITY,URINE CLEAR (CLEAR); COLOR,URINE YELLOW (YELLOW); KETONES,URINE NEGATIVE (NEGATIVE); LEUKOCYTE ESTERASE ,URINE NEGATIVE (NEGATIVE); NITRITE,URINE NEGATIVE (NEGATIVE); PROTEIN,URINE DIPSTICK TRACE (NEGATIVE); URINE UROBILINOGEN 0.2 mg/dL (0.2 - 1)
[2019-03-24 10:12] LABS: BACTERIA,URINE RARE /HPF; EPITHELIAL CELLS,URINE RARE /LPF; RBC,URINE >50 /HPF (0-5); WBC,URINE (MAN) 0-5 /HPF (0-5)
[2019-03-24] MEDS ORDERED: METFORMIN HCL500 MG PO (10:23)
[2019-03-24 10:27] LABS: CREATININE,URINE RANDOM 68.92 mg/dL (63-166); TOTAL PROTEIN, URINE 18.8 mg/dL (1-14)
[2019-03-24 10:30] LABS: PROTEIN/CREATININE RATIO,URINE 0.27
[2019-03-24] MEDS ORDERED: ATORVASTATIN CA20 MG PO (10:40)
[2019-03-24] MEDS ORDERED: GABAPENTIN300 MG PO (10:40)
[2019-03-24] MEDS ORDERED: BENAZEPRIL HCL10 MG PO (10:40)
[2019-03-24] MEDS ORDERED: TIZANIDINE HCL4 MG PO (10:40)
[2019-03-24] MEDS ORDERED: HYDROCODON-ACE1 EAC9 PO (10:40)
[2019-03-24] MEDS ORDERED: OMEGA 3 1,0001 EACH PO (10:40)
[2019-03-24] MEDS ORDERED: DEXTROSE 50% SYRINGE 50 ML IV PRN ×2 (11:30→12:15)
[2019-03-24] MEDS: HEPARIN SOD (PORCINE) 5,000 UNIT/ML VIAL SC SCH ×2 (11:59→20:49)
--- NOTE | 2019-03-24 14:03 | Diagnostic Imaging Report ---
EXAMINATION: MRI of the brain without contrast. HISTORY: Left-sided weakness, TIA, evaluate for acute stroke COMPARISON: Head CT of 03/23/2019 TECHNIQUE: Sagittal T2; axial DWI, T2, FLAIR, T1-IR, T2 gradient echo; coronal FLAIR. IMAGE QUALITY: Adequate. FINDINGS: Parenchyma: 1. No abnormal signal intensity 2. No mass, hemorrhage, acute or chronic infarcts. Skull: Unremarkable. Vessels: Expected flow voids present in the major arteries and dural sinuses. Extra-axial spaces: No abnormal signal intensity or mass effect. Brain volume: Within normal limits for age. Ventricles: No hydrocephalus or displacement. Foramen magnum: Unremarkable. Sella: Unremarkable. Paranasal / mastoid sinuses: No significant inflammatory disease. IMPRESSION: No acute infarct. Unchanged compared to head CT of 03/23/2019. Signed by: Dr. Ginger Davis M.D. on 03/24/2019 2:00 PM
[2019-03-24] MEDS: GABAPENTIN 300 MG CAP PO SCH ×2 (15:47→20:48)
[2019-03-24] MEDS: FAMOTIDINE 20 MG TAB PO SCH (15:48)
[2019-03-24] MEDS: INSULIN REGULAR, HUMAN 100 UNIT/1 ML 3ML VIAL SQ SCH ×2 (16:14→20:50)
--- NOTE | 2019-03-24 16:40 | Diagnostic Imaging Report ---
EXAM: Renal Ultrasound INDICATION: DAMARIS COMPARISON: CT abdomen/pelvis 10/06/2018. TECHNIQUE: Transverse and longitudinal images of the kidneys and bladder were obtained. FINDINGS: Right Kidney: Length: Measures 10.8 x 6.7 x 5.4 cm Appearance: Normal echogenicity. Collecting system: No hydronephrosis Stones: None Cyst/Mass: None Left Kidney: Length: Measures 10.9 x 5.9 x 5.1 cm Appearance: Normal echogenicity. Collecting system: Mild left pelviectasis with minimal hydronephrosis. Stones: None Cyst/Mass: None Bladder: Decompressed. Arceo catheter is present. Next The prostate is not well-visualized. IMPRESSION: Minimal left hydronephrosis. No evidence of stone. Signed by: Dr. Claire Malin MD on 03/24/2019 4:36 PM
[2019-03-24] MEDS ORDERED: HUMALOG100 UNIT/1 SQ (16:47)
[2019-03-24] MEDS ORDERED: LANTUS 3ML100 UNITS/ SQ (16:47)
--- NOTE | 2019-03-24 18:07 | Consultation ---
DATE OF CONSULTATION: 03/24/2019 Neurology Consult Note HISTORY OF PRESENT ILLNESS: Mr. Matt Taylor is a 68-year-old right-hand dominant man with past medical history significant for hypertension, hyperlipidemia, diabetes mellitus type 2, and tobacco use, admitted to [facility] on March 23, 2019, with symptoms suspicious for transient ischemic attack versus stroke. According to the patient, he awoke at approximately 0400 hours on the day of admission with left hemiparesis affecting the arm and leg, left hemihypesthesia affecting the arm and leg, poor balance and impairment of gait. The patient does not report a visual field cut or other disturbance, dysarthria, aphasia, facial droop, dizziness, or confusion associated with the above symptoms. Mr. Taylor arose from bed, to the shower, which lasted for approximately 30 minutes, then return to bed to sleep. Mr. Taylor work for the day at approximately 10:30. At that time, the left-sided hemiparesis and hemihypesthesia was improved, but persisted. Mr. Taylor then contacted his primary care physician; he advised him to present to the nearest emergency center for further evaluation of his symptoms. Upon arrival in the emergency center, the patient was afebrile. Initial measurements of the patient's vital signs are unavailable for review at present. The documentation of the patient's neurological examination is unavailable for review at present as well. While in the emergency center, the patient underwent a CT of the brain without contrast, which did not reveal evidence of recent large territorial ischemia or hemorrhage. While undergoing a diagnostic study, the patient became hypotensive with blood pressures in the 70s over 40s. Mr. Taylor was returned to the emergency center where he received a single dose of norepinephrine. Mr. Taylor was subsequently admitted to the intensive care unit at [facility] for further evaluation and treatment of his symptoms. The patient reports while in the emergency room, his symptoms resolved. Mr. Taylor estimates the left hemiparesis, left hemihypesthesia, poor balance, and gait impairment persisted for approximately 8 hours. Mr. Taylor does not report experiencing similar symptoms previously. He does not report a severe headache associated with the above symptoms. The patient does not take antiplatelet or anticoagulant medication on daily basis at home. REVIEW OF SYSTEMS: Weakness of the left arm and left leg, numbness of the left arm and left leg, impairment of balance and gait, low back pain (chronic). PAST MEDICAL HISTORY: Hypertension, hyperlipidemia, diabetes mellitus type 2 complicated by peripheral neuropathy, chronic low back pain. PAST SURGICAL HISTORY: Lumbar spine fusion, left rotator cuff repair, tonsillectomy. PAST HOSPITALIZATIONS: Surgeries/procedures as listed. FAMILY MEDICAL HISTORY: There is a strong family medical history of diabetes mellitus. Mr. Taylor's father has from a stroke. His mother from complications of diabetes mellitus. SOCIAL HISTORY: Mr. Taylor is . 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 The patient does report current tobacco use, he has smoked approximately 1/2 pack of cigarettes per day for the past eight years. The patient does not report current or prior alcohol or recreational drug use. HOME MEDICATIONS: Benazepril 20 mg by mouth daily, atorvastatin 20 mg by mouth at bedtime daily, metformin 1000 mg by mouth twice daily, omega-3 fatty acids/fish oil 1 g by mouth twice daily, gabapentin 300 mg by mouth 3 times daily, hydrocodone one tablet by mouth every 6 hours as needed for pain, tizanidine 4 mg one tablet by mouth as needed for muscle spasm. Mr. Taylor reportedly takes insulin and Trulicity as well. HOSPITAL MEDICATIONS: Aspirin, Lipitor, Pepcid, TriCor, heparin, insulin sliding scale, sodium bicarbonate. ALLERGIES: NO KNOWN DRUG ALLERGIES. NO KNOWN FOOD ALLERGIES. NO KNOWN ALLERGIES TO LATEX. NO KNOWN ALLERGIES TO IODINE OR OTHER CONTRAST MATERIALS. PHYSICAL EXAMINATION: VITAL SIGNS: Height 65 inches, weight 182.19 pounds, BMI 30.3 kg/m2, blood pressure 131/77 mmHg, pulse 90 beats per minute, respiratory rate 12 breaths per minute, and oxygen saturation 98% on 2 L by nasal cannula. GENERAL: The patient is awake and alert, does not appear distressed. Obese. HEENT: Normocephalic, atraumatic. Pupils are equal, round, and reactive to light. Moist mucous membranes. NECK: Supple. No appreciable thyromegaly. No appreciable carotid bruits. CARDIOVASCULAR: S1, S2. Regular rate and rhythm. No murmurs, rubs, or gallops. RESPIRATORY: Clear to auscultation bilaterally. No wheezes, rhonchi, or rales. EXTREMITIES: The skin is warm and dry. No clubbing, cyanosis, or edema. The posterior tibial and dorsalis pedis pulses are 1+ and symmetric. Absence of hair over the feet and distal forelegs. SKIN: No rashes or lesions. NEUROLOGIC: 1. Memory/Attention: The patient is awake and alert, oriented to person, place, time, and situation. 2. Cranial Nerves: Cranial nerve I - not tested. Cranial nerve II, III, IV, and - pupils are equal and round, react briskly to light (from 4 mm to 2 mm). Extraocular movements intact. No nystagmus. Cranial nerve V - sensation to light touch and pinprick is intact in the bilateral V1 through V3 distributions. Strength in the temporalis and masseter muscle is within normal limits. Cranial nerve VII - the face is symmetric as are all facial movements. Strength is within normal limits. Cranial nerve VIII - hearing is intact to finger rub bilaterally. Cranial nerve IX, X - the soft palate elevates equally and symmetrically. Cranial nerve XI - normal strength of the bilateral sternocleidomastoid and trapezius muscles. Cranial nerve 12-the tongue protrudes midline and moves symmetrically from [id number]. 3. Strength: Bulk is normal. Strength is 5/5 in the bilateral deltoids, biceps, triceps, wrist flexors and extensors, finger flexors and extensors, intrinsic hand muscles, hip flexors, knee flexors and extensors, ankle dorsiflexion and plantar flexion, and intrinsic foot muscles except as follows: The left arm flexors are 5-/5, left arm extensors are 4+/5. Tone is normal in both arms and both legs. 4. DTRs: Deep tendon reflexes are 1+ and symmetric at the triceps, biceps, brachioradialis, and patellas. Deep tendon reflexes are absent and symmetric at the Achilles. Plantar responses are flexor bilaterally. 5. Sensation: Sensation is intact to light touch and pinprick in both arms and both legs. 6. Cerebellar: Tykrgs-[id number] and heel-tabor movements are intact without dysmetria or other impairment. 7. Gait: Deferred. 8. Speech: Spontaneous speech is normal without appreciable dysarthria or aphasia. Repetition is intact. 9. Involuntary movements: None. 10. Pronator Drift: Subtle in the left arm. LABORATORY DATA: The most recent basic metabolic panel is significant for a chloride of 116, carbon dioxide of 20, BUN of 54, creatinine of 1.93, estimated GFR of 35, and serum glucose of 124. A liver function panel collected on March 23, 2019, was unremarkable. The patient's cardiac enzymes are negative x2. Hemoglobin A1c is 8.1. Total cholesterol 128, triglycerides 240, LDL cholesterol 50, HDL cholesterol 30. B-natriuretic peptide 15.2. The CBC with differential and platelets reveals a white blood cell count of 8.86 with 65.0% neutrophils, 18.8% lymphocytes, 8.8% monocytes, 6.4% eosinophils, and 0.7% basophils. The hemoglobin and hematocrit are 10.9 and 32.2, respectively. The platelet count is 177. The coagulation profile was within normal limits. Urinalysis was significant for trace protein, more than 50 red blood cells, and a random total protein of 18.8. DIAGNOSTIC STUDIES: 1. Electrocardiogram on 03/23/2019: Normal sinus rhythm at 77 beats per minute. Right bundle-branch block. 2. Chest x-ray on 03/23/2019: No radiographic evidence of acute cardiopulmonary process. 3. CT of the brain without contrast on 03/23/2019: There is no evidence for recent or remote large territorial ischemia, hemorrhage, mass, or mass effect. Cerebral volumes are appropriate for age. There are findings compatible with [id number] chronic small-vessel ischemic disease. 4. Chest x-ray on 03/23/2019: The tip of the right neck central line terminates in the region of the proximal SVC. There is no pneumothorax. No other significant interval changes. 5. Ventilation perfusion lung scan on 03/23/2019: Perfusion lung scan findings represent a very low probability for acute pulmonary embolic disease based on the PIOPED II criteria. Ventilation images would not change this probability. Not having ventilation images in this case makes it impossible to determine if obstructive lung disease is present. 6. Echocardiogram on 03/24/2019: Ejection fraction 50% to 55%. No valvular abnormalities are indicated. 7. Bilateral carotid artery ultrasound with Doppler on 03/24/2019: There is atherosclerosis without hemodynamically significant stenosis in the right external carotid artery. Otherwise, there is no atherosclerosis in either carotid artery system. Flow is antegrade in the bilateral vertebral arteries. ASSESSMENT AND PLAN: Mr. Taylor is a 68-year-old right-hand dominant man with multiple vascular risk factors, admitted to [facility] on March 23, 2019, with a probable ischemic stroke in the right subcortical middle cerebral artery distribution. His neurological examination is significant for subtle weakness of the left arm. His laboratory data and other diagnostic studies have been reviewed and are documented above. RECOMMENDATIONS: Are as follows: 1. A MRI of the brain without contrast has been ordered and is pending. 2. Continue aspirin 81 mg by mouth daily for stroke prophylaxis. 3. Mr. Taylor became hypotensive while being evaluated in the emergency department. He received a single dose of norepinephrine. Continue to hold antihypertensive medications. Monitor vital signs per unit protocol. 4. The patient's goal total cholesterol is less than 200 with LDL less than 70. Mr. Taylor has reached these goals. Treatment with the patient's home medication of atorvastatin 20 mg by mouth at bedtime daily will be continued. Fenofibrate 145 mg by mouth at bedtime daily will be prescribed for hypertriglyceridemia. 5. The patient's goal hemoglobin A1c is less than 7.0. Mr. Taylor's hemoglobin A1c is 8.1. Defer treatment to the primary service. A high-dose insulin sliding scale was prescribed. Tight glycemic control is recommended while the patient is hospitalized. 6. A speech therapy consultation will be deferred as the patient has no language or cognitive deficits. A physical therapy consultation will be ordered. 7. GI prophylaxis with Pepcid 20 mg by mouth twice daily with meals. DVT prophylaxis with heparin 5000 units subcutaneously q.12 hours. 8. Tobacco cessation counseling was provided to the patient. 9. Defer treatment of the remaining medical comorbidities to the primary and other services following the patient. 10. Mr. Taylor reports having a procedure scheduled for Tuesday, March 26, 2019. Both the patient and his are informed the procedure will have to be delayed secondary to the patient experiencing a transient ischemic attack versus stroke. Thank you for this consultation. I will continue to follow the patient while he remains in the hospital. TIME SPENT: 70 minutes. Celina Dwyer MD CP/CURT /[id number]
--- NOTE | 2019-03-24 19:35 | NUR ---
Pt had MRI and Renal US done. Patient also worked with Physical Therapy today. Patient became hypertensive later in the shift (refer to vital signs flowsheet). Systolic BP in 160's-170's. Dr. Dwyer notified of MRI results and hypertension. Dr. Dwyer deferred to manufacturing lab technician about blood pressure. Dr. Gooden's office paged and message left about patients hypertension. Page went unanswered.
[2019-03-24] MEDS: FENOFIBRATE 145 MG TAB PO SCH (20:48)
[2019-03-24] MEDS: HYDROCODONE/APAP 5MG-325MG TAB PO PRN (21:10)
[2019-03-24] MEDS: ATORVASTATIN 20 MG TAB PO SCH (21:10)
[2019-03-25] VITALS (17 sets, daily range): BP systolic 123–178; BP diastolic 69–97
[2019-03-25] MEDS: SODIUM BICARBONATE 8.4% 75 ML in SODIUM CHLORIDE 0.45% 1,000 ML IV SCH (04:03)
[2019-03-25 05:15] LABS: BASOPHILS # (AUTO) 0.1 (0.0-0.1); BASOPHILS % 0.6 % (0.0-1.0); EOSINOPHILS # (AUTO) 0.4 (0.0-0.4); EOSINOPHILS % 4.4 % (0.0-6.0); HEMATOCRIT 31.3 % (38.2-49.6); HEMOGLOBIN 10.9 g/dL (14.0-18.0); LYMPHOCYTES # (AUTO) 1.6 (1.0-3.2); LYMPHOCYTES % 20.7 % (18.0-39.1); MEAN CORPUSCULAR HGB CONC 34.8 g/dL (31-35); MEAN CORPUSCULAR VOLUME 91.8 fL (81-99); MONOCYTES # (AUTO) 0.9 (0.2-0.8); MONOCYTES % 11.4 % (4.4-11.3); NEUTROPHILS % 62.6 % (38.7-80.0); PLATELET COUNT 180 x10e3/uL (140-360); RED BLOOD COUNT 3.41 x10e6/uL (4.3-5.7); RED CELL DISTRIBUTION WIDTH 13.1 % (11.7-14.4)
[2019-03-25 05:48] LABS: ALANINE AMINOTRANSFERASE 8 IU/L (0-55); ALBUMIN 3.1 g/dL (3.5-5.0); ALBUMIN/GLOBULIN RATIO 1.1 (0.8-2.0); ALKALINE PHOSPHATASE 104 IU/L (40-150); ANION GAP 12.6 mmol/L (8-16); BLOOD UREA NITROGEN 27 mg/dL (7-26); BUN/CREATININE RATIO 36 (6-25); CARBON DIOXIDE 27 mmol/L (22-29); CHLORIDE 109 mmol/L (98-107); CREATININE, SERUM 0.75 mg/dL (0.72-1.25); EST GLOMERULAR FILTRATION RATE > 60 ML/MIN (60-); GLUCOSE 85 mg/dL (74-118); MAGNESIUM 1.5 MG/DL (1.3-2.1); POTASSIUM 3.6 mmol/L (3.5-5.1); SODIUM 145 mmol/L (136-145)
[2019-03-25 06:07] LABS: % IRON SATURATION 15 % (15-50); ANION GAP 12.6 mmol/L (8-16); BLOOD UREA NITROGEN 27 mg/dL (7-26); BUN/CREATININE RATIO 36 (6-25); CARBON DIOXIDE 27 mmol/L (22-29); CHLORIDE 110 mmol/L (98-107); CREATININE, SERUM 0.74 mg/dL (0.72-1.25); EST GLOMERULAR FILTRATION RATE > 60 ML/MIN (60-); GLUCOSE 85 mg/dL (74-118); IRON 57 ug/dL (65-175); PHOSPHORUS 2.5 MG/DL (2.3-4.7); POTASSIUM 3.6 mmol/L (3.5-5.1); SODIUM 146 mmol/L (136-145); TOTAL IRON BINDING CAPACITY 381 ug/dL (261-478); TRANSFERRIN 272 mg/dL (174-364)
--- NOTE | 2019-03-25 06:13 | NUR ---
Pt not wanting to take his po medications stating, "Im afraid Im just going to throw them up".
[2019-03-25 06:26] LABS: FERRITIN 77.45 ng/mL (21.81-274.66)
[2019-03-25] MEDS: INSULIN REGULAR, HUMAN 100 UNIT/1 ML 3ML VIAL SQ SCH ×4 (07:34→21:07)
[2019-03-25] MEDS: FAMOTIDINE 20 MG TAB PO SCH ×2 (08:05→15:38)
[2019-03-25] MEDS: ASPIRIN 81 MG ENTERIC COATED PO SCH (08:05)
[2019-03-25] MEDS: GABAPENTIN 300 MG CAP PO SCH ×3 (08:05→21:05)
[2019-03-25] MEDS: HEPARIN SOD (PORCINE) 5,000 UNIT/ML VIAL SC SCH ×2 (08:06→21:06)
[2019-03-25] MEDS: HYDROCODONE/APAP 5MG-325MG TAB PO PRN ×2 (08:17→21:08)
[2019-03-25] MEDS: BENAZEPRIL HCL 10 MG TAB PO SCH (08:20)
--- NOTE | 2019-03-25 10:09 | Progress Note ---
DATE: SUBJECTIVE: The patient is here for TIA like symptoms and also the patient with acute renal failure, which resolved. Currently, the patient is asymptomatic, did have some myalgia and body aches yesterday. Some numbness in the upper left extremity remains. Otherwise, the patient has retained all neurological functions. OBJECTIVE: VITAL SIGNS: Temperature is afebrile, pulse of 76, respirations of 14 to 10, blood pressure is 145/81, pulse oximetry of 100% O2 at room air. HEENT: Normocephalic, atraumatic. Pupils are reactive to light and accommodation. CVS: S1, S2 normal. Regular rate and rhythm. ABDOMEN: Nontender, nondistended. NEUROLOGICAL: The patient is stable. EXTREMITIES: Deep tendon reflexes and strength are normal in all extremities. LABORATORY DATA: Today's white count is 7.91, hemoglobin of 10.9, hematocrit 31.3. Chemistry shows sodium of 146, potassium of 3.6, BUN is 27, creatinine 0.74 on down. Glucose is 173. A1c was 8.4. The patient's triglycerides of 240. Total cholesterol of 128, LDL is 50, and HDL of 30. MEDICATIONS: Include a bicarb drip at this time, hydrocodone q.6 hours as needed, atorvastatin 20 mg. The patient is also on heparin 5000 units q.12 hours for DVT prophylaxis, gabapentin 300 mg 3 times a day, fenofibrate has been started by Dr. Dwyer on 45 mg, famotidine 20 mg, aspirin 81 mg. ASSESSMENT: 1. Transient ischemic attack versus cerebrovascular accident. The patient has been started on anticoagulation, aspirin, and also started on cholesterol-lowering drugs. 2. Diabetes mellitus. Continue monitoring his blood sugars. 3. Continue watching his antihypertensive medications. 4. The patient is also on heparin for DVT prophylaxis. 5. We will have the patient transferred over to the Med/Surg Unit and possible discharge tomorrow. 6. For the acute renal failure, the patient has results. Ultrasound of the kidney shows mild hydronephrosis. Further recommendation per clinical course. We will continue monitor the patient. MD TRINI Balbuena/CURT /[id number]
--- NOTE | 2019-03-25 11:04 | Progress Note ---
DATE: Cardiology Progress Note SUBJECTIVE: The patient is without any new complaints this morning. He states that he feels well. He denies any chest pain, shortness of breath, palpitations. He does endorse a little bit of weakness on his left upper extremity and also neuropathic pain in bilateral feet, but not any other complaints. OBJECTIVE: VITAL SIGNS: Temperature 98.4, pulse 76, respiratory rate 10, blood pressure 145/81, oxygen saturation 100% on room air. GENERAL: Alert and oriented x3. Resting comfortably in bed, does not appear to be in any acute distress. NECK: Supple. No JVD noted. CARDIOVASCULAR: Regular rate and rhythm. Normal S1, S2. No murmurs, no gallops. LUNGS: Clear to auscultation throughout. EXTREMITIES: Lower extremities, 2+ pedal pulses. No edema. CARDIOVASCULAR MEDICATION: Aspirin 81 mg p.o. daily, fenofibrate 145 mg p.o. at bedtime, gabapentin 300 mg p.o. t.i.d., heparin 5000 units subcu every 12 hours, atorvastatin 20 mg p.o. at bedtime. LABORATORY DATA: WBC 7.91, hemoglobin 10.9, hematocrit 31.3, platelets 180, sodium 146, potassium 3.6, BUN 27, creatinine 0.74. Renal ultrasound from yesterday with minimal left hydronephrosis. No evidence of a stone. Brain MRI from yesterday with no acute infarct, unchanged compared to the CT that was done on the . IMPRESSION: 1. Transient ischemic attack. 2. Hypertension. 3. Dyslipidemia. 4. Smoker. RECOMMENDATIONS: Echocardiogram completed yesterday. Awaiting review, recommendations will follow. Home antihypertensive is restarted. Continue the above-listed cardiac medication. Continue to monitor on tele. This patient is stable and may be transferred from ICU. The patient will need ischemic workup as outpatient. We will continue to follow the patient closely. Dictated by Sherry Isaacs NP MD ALYSIA Dunbar/CURT /[id number]
--- NOTE | 2019-03-25 17:41 | NUR ---
0700- Orders given to transfer to medical-surgical room with telemetry. 0900- Arceo catheter d/c per Dr. Hernandez's order. RN instructed to bladder scan patients first void and call MD if greater than 200cc in bladder. Patient voided 200 cc and bladder scan shows [address] Wesley aware and wants patient to be bladder scanned tomorrow in the morning. 1400- Patient ambulated in hallway x2 today with no assistive devices. Pt tolerated ambulating well.
[2019-03-25] MEDS ORDERED: CLONIDINE HCL 0.1 MG TAB PO ONE (21:00)
[2019-03-25] MEDS: ATORVASTATIN 20 MG TAB PO SCH (21:05)
[2019-03-25] MEDS: FENOFIBRATE 145 MG TAB PO SCH (21:05)
[2019-03-26] VITALS: BP 111/67
[2019-03-26 00:02] VITALS: BP 178/90
[2019-03-26 04:19] VITALS: BP 135/83
[2019-03-26 05:23] LABS: BASOPHILS # (AUTO) 0.1 (0.0-0.1); BASOPHILS % 0.7 % (0.0-1.0); EOSINOPHILS # (AUTO) 0.4 (0.0-0.4); EOSINOPHILS % 5.7 % (0.0-6.0); HEMATOCRIT 30.8 % (38.2-49.6); HEMOGLOBIN 10.7 g/dL (14.0-18.0); LYMPHOCYTES # (AUTO) 1.9 (1.0-3.2); LYMPHOCYTES % 27.2 % (18.0-39.1); MEAN CORPUSCULAR HEMOGLOBIN 31.8 pg (28-32); MEAN CORPUSCULAR HGB CONC 34.7 g/dL (31-35); MEAN CORPUSCULAR VOLUME 91.7 fL (81-99); MONOCYTES # (AUTO) 0.7 (0.2-0.8); MONOCYTES % 10.5 % (4.4-11.3); NEUTROPHILS # (AUTO) 3.8 (2.1-6.9); NEUTROPHILS % 55.8 % (38.7-80.0); PLATELET COUNT 178 x10e3/uL (140-360); RED BLOOD COUNT 3.36 x10e6/uL (4.3-5.7); RED CELL DISTRIBUTION WIDTH 12.7 % (11.7-14.4)
[2019-03-26 05:46] VITALS: BP 119/64
[2019-03-26 05:48] LABS: ANION GAP 6.7 mmol/L (8-16); BLOOD UREA NITROGEN 19 mg/dL (7-26); BUN/CREATININE RATIO 24 (6-25); CALCIUM 8.9 mg/dL (8.4-10.2); CARBON DIOXIDE 32 mmol/L (22-29); CHLORIDE 105 mmol/L (98-107); CREATININE, SERUM 0.79 mg/dL (0.72-1.25); EST GLOMERULAR FILTRATION RATE > 60 ML/MIN (60-); GLUCOSE 95 mg/dL (74-118); POTASSIUM 3.7 mmol/L (3.5-5.1); SODIUM 140 mmol/L (136-145)
--- NOTE | 2019-03-26 05:48 | Consultation ---
DATE OF CONSULTATION: 03/24/2019 Cardiology Consultation REQUESTING PHYSICIAN: Nabor James M.D. REASON FOR CONSULTATION: Chest pain and also TIA. HISTORY OF PRESENT ILLNESS: Mr. Taylor is a 68-year-old male, who states that he has been in his usual state of health until Tuesday night coming today in the morning. Around 4 in the morning, he was asleep. He got up to go to the restroom and noticed that he was unable to move his left upper extremity without having to carry it over. He states for this reason, he went to Dr. Biswas, his PCP, the following morning and after he went to see him, he was asked to come to the ER. His complaints resolved yesterday on the at around 6 o'clock in the evening. He has attained full mobility of his left upper extremity. He denies any chest pain. He denies any palpitations, dizziness, syncope, fever, chills, abdominal pain, or any other deficits in any other extremity. He does endorse ongoing neuropathic pain in his bilateral lower extremity for which he has been taking 4 Advil a day. PAST MEDICAL HISTORY: Diabetes and hypertension. SOCIAL HISTORY: Smoker, half a pack a day for the last 10 years. He denies any illicit drug use. 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 FAMILY HISTORY: Noncontributory. PAST SURGICAL HISTORY: He has had his left shoulder repaired approximately 3 years ago. REVIEW OF SYSTEMS: Negative except as mentioned above. PHYSICAL EXAMINATION: VITAL SIGNS: Temperature 98.5, pulse 90, respiratory rate 12, blood pressure 131/77, and oxygen saturation 98% on 2 liters nasal cannula. GENERAL: Alert and oriented x3, resting comfortably in bed, does not appear to be in any acute distress. NECK: Supple. No JVD noted. No bruits. CARDIOVASCULAR: Regular rate and rhythm. Normal S1 and S2. No gallops. No murmurs. LUNGS: Clear to auscultation throughout. No wheezing. No rhonchi or crackles. ABDOMEN: Soft and nontender. Normoactive bowel sounds. EXTREMITIES: Lower extremity, 2+ pedal pulses. No edema. CARDIAC MEDICATIONS: Aspirin 81 mg p.o. daily. LABORATORY DATA: WBC 8.86, hemoglobin 10.9, hematocrit 32.2, and platelets 177. Sodium 144, potassium 4.8, BUN 54, creatinine 1.93, glucose 124, creatine kinase 81, CK-MB 3.30, troponin 0.035, triglycerides 240, total cholesterol 128, LDL 50, and HDL 30. VQ scan negative for PE. X-ray on admission with no evidence of acute cardiopulmonary process. Brain CT scan with no acute abnormalities. TELEMETRY: Normal sinus rhythm. IMPRESSION: 1. Transient ischemic attack. 2. Hypertension. 3. Dehydration. 4. Diabetes mellitus. 5. Neuropathy. RECOMMENDATIONS: Obtain carotid Doppler and also echocardiogram. This patient will also need ischemic workup. This may be done as outpatient for he has no current cardiac complaints. Maintain on telemetry. Continue aspirin therapy. Continue to monitor this patient very closely. Neurology has been consulted. Their recommendations will be highly appreciated. At this time, this patient is quite stable and doing well. Thank you. We appreciate this consultation. Dictated by Sherry Isaacs NP MD VIANCA DunbarV/CURT /[id number]
--- NOTE | 2019-03-26 05:55 | NUR ---
Patient brought from icu, patient welcomed, safety and fall precautions maintained as per hospital protocol: bed in lowest position and locked, needed items beside bed and call zuleta close to patient. patient instructed to inform nurses if passes urine. MD wants post void bladder scan this morning, this is because according to icu nurse, patient had about 200mls urine retention after mancini was removed.
--- NOTE | 2019-03-26 07:00 | NUR ---
Pt transfered to [facility], received by Segun PIEDRA. No complications noted.
[2019-03-26] MEDS: INSULIN REGULAR, HUMAN 100 UNIT/1 ML 3ML VIAL SQ SCH (07:30)
[2019-03-26 07:47] VITALS: BP 161/90
--- NOTE | 2019-03-26 07:48 | NUR ---
Checked post void residual urine by bladder scan . its 70ml, patient voided 450cc of urine
[2019-03-26] MEDS: BENAZEPRIL HCL 10 MG TAB PO SCH (08:41)
[2019-03-26] MEDS: HEPARIN SOD (PORCINE) 5,000 UNIT/ML VIAL SC SCH (08:41)
[2019-03-26] MEDS: ASPIRIN 81 MG ENTERIC COATED PO SCH (08:41)
[2019-03-26] MEDS: GABAPENTIN 300 MG CAP PO SCH (08:41)
[2019-03-26] MEDS: FAMOTIDINE 20 MG TAB PO SCH (08:41)
[2019-03-26 09:00] VITALS: BP 161/90
[2019-03-26] MEDS ORDERED: FENOFIBRATE145 MG PO (10:10)
--- NOTE | 2019-03-26 10:14 | Progress Note ---
DATE: SUBJECTIVE: The patient is a 68-year-old gentleman, who came in with TIA/stroke like syndrome. The patient is currently asymptomatic. No complaints. The patient also had developed acute renal failure, which has over the days gotten better. No complaints repeated from the patient. No chest pain. No shortness of breath. No weakness. No focal deficits noted and the patient is eager to go home. PHYSICAL EXAMINATION: VITAL SIGNS: Temperature is 97.0, pulse of 78, respirations of 18, blood pressure is 119/64, pulse oximeter of 97%. HEENT: Normocephalic, atraumatic. Pupils are reactive to light and accommodation. CVS: S1, S2 normal. Regular rate and rhythm. ABDOMEN: Nontender, nondistended. EXTREMITIES: No clubbing, no cyanosis, no edema. NEUROLOGIC: No deficits noted. No paresthesias. No hyperesthesias. LABORATORY DATA: The patient's white count is 6.79, hemoglobin 10.7, hematocrit 38.8. Chemistry shows sodium 140, potassium 3.7, BUN of 19, creatinine of 0.79. Urine negative. ASSESSMENT: 1. Transient ischemic attack. 2. Diabetes mellitus. 3. Hypertension. 4. Acute renal failure. PLAN: 1. Continue with monitoring the patient. The patient can be discharged today on aspirin and also lipid-lowering agent. Tricor has been added. 2. Diabetes. Continue monitoring of less blood sugars and also diabetic diet. 3. Acute renal failure. The patient's ultrasound of the kidney has been done. No medical kidney disease and need to be followed as an outpatient. Did mention the patient needs probably repeat ultrasound to check his hydronephrosis. The patient can be discharged home and followed up with his primary care physician. MD TRINI Balbuena/ANNIEL /[id number]
--- NOTE | 2019-03-26 10:44 | NUR ---
Patient discharged home, new order recvd from Dr James to take IJ line out, prescription given, IV canulas removed with tip intact from left hand, rt IJ line removed pressure dressing applied, denies any chest pain or SOB, at bed side, transported via wheelchair to [facility]
== END 2019-03-26 11:02 | disposition home or self-care (01) | DRG 69 ==
LOC: ER 15:05 → ERHOLD 15:41 → ICU 22:00 → MED/SURG3 03-26 05:50
PROVIDERS: ADMIT Family Medicine; ATTEND Family Medicine
DX: G45.9 Transient cerebral ischemic attack, unspecified (principal); N17.0 Acute kidney failure with tubular necrosis; E87.2 Acidosis; M54.10 Radiculopathy, site unspecified; E78.5 Hyperlipidemia, unspecified; I10 Essential (primary) hypertension; G89.29 Other chronic pain; E87.5 Hyperkalemia; E11.42 Type 2 diabetes mellitus with diabetic polyneuropathy; Z79.4 Long term (current) use of insulin; E86.9 Volume depletion, unspecified; F17.210 Nicotine dependence, cigarettes, uncomplicated; E86.0 Dehydration
CPT/HCPCS: 36415; 70450; 70551; 71045; 71046; 76770; 78582; 80048; 80053; 80061; 81001; 82550; 82553; 82570; 82728; 82948; 83036; 83540; 83735; 83880; 84100; 84156; 84466; 84484; 85025; 85610; 85730; 93005; 93306; 93880; 96372; 99284; A9540; A9558; J1644; J1817; J7030